=== PATIENT | male | born 1935 | race Caucasian/White ===

== ENCOUNTER → 2016-07-13 | Outpatient (CLI) | payer OTHER ==
[~2016-07-13] MED LIST: AEROECLIPSE1 EACH INH; ALBUTEROL2.5 MG/0.5 INH; ALLEGRA180 MG PO; ANTACID500 MG PO; ASPIRIN81 MG PO; ATORVASTATIN CA20 MG PO; AZATHIOPRINE50 MG PO; BYSTOLIC 5 MG5 MG PO; CIMETIDINE 400400 MG PO; COUMADIN; COUMADIN 2 MG TA2 M1 PO; COUMADIN 4 MG TA4 M1 PO; COUMADIN 5 MG TA5 M1 PO; FISH OIL 1,0001 EAC9 PO; FISH OIL500 M1 PO; FOLIC ACID 1 MG1 MG GT; FOLIC ACID 1 MG1 MG PO; FOLIC ACID PO; FUROSEMIDE 40 M40 M1 PO; GLUCOPHAGE XR500 MG PO; GLUCOPHAGE500 MG PO; GLUCOTROL XL10 MG PO; GLUCOTROL10 MG PO; HYDROCODONE-AP1 EAC6 PO; IMURAN 50MG TAB50 M1 PO; IRON55 MG PO; JANTOVEN6 MG PO; KLOR-CON 10 ER10 MEQ PO; LASIX 20 MG TAB20 MG PO; LEVAQUIN 250 M250 MG PO; LEVAQUIN 500 M500 M2 PO; LEVOFLOXACIN750 MG PO; LORATIDINE 10 M10 M1 PO; METFORMIN 500500 MG PO; MONTELUKAST SOD10 MG PO; MUCINEX TA600 MG/TA2 PO; MUCINEX600 MG PO; NORCO 5-325 TA1 EACH PO; OMEPRAZOLE20 M2 PO; OMEPRAZOLE20 MG PO; OXYBUTYNIN CHLO10 MG PO; PACERONE 200 M200 M1 PO; POTASSIUM20 PO; PRAVACHOL 20 MG20 M1 PO; PREDNISONE 20 M20 M1 PO; PREDNISONE 5 MG5 M1 PO; PROAIR HFA8.5 GM; PROTONIX40 M2 PO; PROZAC 20 MG20 MG PO; QVAR8.7 G1 IH; ROBAXIN 750 MG750 M1 PO; SIMCOR 500-201 EACH PO; SYNTHROID50 MCG PO; UNICOMPLEX M TA1 TA1 PO; VESICARE 5 MG TA5 MG PO; ZANTAC 150MG T150 M1 PO; ZESTRIL10 MG PO; ZESTRIL5 MG PO; [UNRECOGNIZED DRUG - OTHER] PO
== END ==
LOC: CAT 05:21
DX: R91.8 Other nonspecific abnormal finding of lung field (principal); R16.1 Splenomegaly, not elsewhere classified

== ENCOUNTER → 2016-09-17 | Outpatient (CLI) | payer OTHER | LOC: MRI 06:49 | DX: R41.3 Other amnesia (principal); R26.9 Unspecified abnormalities of gait and mobility; G31.9 Degenerative disease of nervous system, unspecified; M47.816 Spondylosis without myelopathy or radiculopathy, lumbar region; M54.5 Low back pain ==

== ENCOUNTER 2016-10-09 03:29 | Inpatient (IN) | payer OTHER ==
[~2016-10-09] VITALS: Ht 162.6 cm; Wt 71.7 kg
--- NOTE | ~2016-10-09 | H ---
[facility] [place] [address] HISTORY AND PHYSICAL Name: BETY XIE Room #: 432-P ADM IN M.R.#: [id number] Admission: 10/09/16 Attend Phys: Ciro Monreal MD Discharge: Date of : 35 Report #: [id number] THIS REPORT FOR: //name// CC: Ciro Monreal DATE OF SERVICE: 10/09/2016 DATE OF ADMISSION: 10/09/2016. DATE OF SERVICE: 10/09/2016. CHIEF COMPLAINT: Weakness, fever and chills. HISTORY OF PRESENT ILLNESS: The patient is an 81-year-old male well known to me who presented with sensation of fevers, chills and weakness. He has an underlying immunosuppressive disorder and has had recurrent bouts of pneumonia. He is followed by Dr. See in pulmonary; Dr. Olmos, rheumatology; Dr. Marin, cardiology. He has past history of pneumonia, multiple times; diabetes type 2; rheumatoid arthritis; prior prostate cancer; coronary artery disease with [place] in 93; prior history of gastritis; and prior history of DVT and asthma. MEDICATIONS: Glucotrol 10 mg a day; potassium 20 mEq b.i.d.; AccuNeb q.i.d.; Prozac 20 mg a day; oxybutynin 10 mg daily; amiodarone 200 mg Tuesday, Tuesday, Tuesday; prednisone 7.5 mg a day; iron daily; QVAR b.i.d.; fish oil daily; Spiriva daily; Lasix 20 mg a day; Singulair 10 mg a day; metformin XR 500 mg b.i.d.; folic acid; Synthroid 50 mcg a day; atorvastatin 10 mg a day; omeprazole 20 mg a day; Coumadin 2 mg 2 tablets daily; azathioprine 50 mg a day; guaifenesin b.i.d. ALLERGIES: CONTRAST DYE, PENICILLIN. SOCIAL HISTORY: Nonsmoker, nondrinker, no recreational drugs. Lives with his . REVIEW OF SYSTEMS: CONSTITUTIONAL: He does have chills and fevers. HEENT: No headaches or visual changes. CHEST: No chest pains or tightness in the chest. No significant cough or sputum production. GASTROINTESTINAL: No nausea, vomiting or diarrhea. GENITOURINARY: He has the burning, frequency and sensation of urgency. EXTREMITIES: No new joint pains or swelling. SKIN: No new rashes or wounds. NEUROLOGIC: No new numbness or weakness. PHYSICAL EXAMINATION: [facility] [address] [place] [address] HISTORY AND PHYSICAL Name: BETY XIE Room #: [facility] IN [facility]#: [id number] Admission: 10/09/16 Attend Phys: Ciro Monreal MD Discharge: Date of : 35 Report #: [id number] VITAL SIGNS: Blood pressure 105/57, pulses 103, respiratory rate is 20. He is afebrile. GENERAL: The patient is awake and alert, sitting in a chair. He is very pleasant. He is in no acute distress. HEENT: His mucous membranes are moist. NECK: Supple, without adenopathy, thyromegaly or bruits. CHEST: Clear to auscultation. CARDIOVASCULAR: Regular, without murmur. ABDOMEN: Soft, nondistended. He is mildly tender in the suprapubic area. Bowel sounds are active. EXTREMITIES: No edema. Pulses are intact. LABORATORY DATA: Sodium 144, potassium 4.2, chloride 108, bicarbonate 28, BUN 18, creatinine 1.0, glucose 215, lactic acid is 2.3, AST 25, ALT 35, total protein 6.2, albumin 3.0. INR is 3.3. WBC is 4.0, hemoglobin 11.2, hematocrit 34.4, platelet count 83. UA shows specific gravity 1.020, 2+ blood with 11-20 red cells, 16-25 white cells and many bacteria. ASSESSMENT: 1. Urinary tract infection with sepsis. 2. Immunosuppressed state with rheumatoid arthritis. 3. Diabetes mellitus. 4. Asthma. 5. Atrial fibrillation. PLAN: The patient will be admitted, started on IV fluids, IV Levaquin. He is already feeling so much better after the administration of the first fluids and antibiotics. We will follow up on his culture for sensitivities. We will resume his home meds as listed above. We will encourage activity, and he will have a diabetic diet. By: [id number] Ciro Monreal MD /nt
[2016-10-09 03:42] VITALS: BP 105/57
[2016-10-09] MEDS ORDERED: [UNRECOGNIZED DRUG - OTHER] PO (03:55)
[2016-10-09] MEDS ORDERED: IRON325 PO (04:00)
[2016-10-09] MEDS ORDERED: QVAR8.7 G1 INH (04:01)
[2016-10-09 04:04] LABS: URINE BILIRUBIN NEGATIVE (Negative); URINE BLOOD 2+ (Negative); URINE COLOR YELLOW; URINE GLUCOSE-RANDOM* TRACE (Negative); URINE KETONES NEGATIVE (Negative); URINE LEUKOCYTES-REFLEX 1+ (Negative); URINE PROTEIN (DIPSTICK) TRACE (Negative); URINE UROBILINOGEN 0.2 E.U./dl (0.2-1.0)
[2016-10-09] MEDS ORDERED: ALPHA LIPOIC A600 M1 PO (04:04)
[2016-10-09] MEDS ORDERED: SPIRIVA INH (04:05)
[2016-10-09 04:28] LABS: CASTS None Seen /LPF (None Seen); CRYSTALS None Seen /LPF (None Seen); SQUAMOUS None Seen /LPF (0-3)
[2016-10-09 04:46] LABS: HEMATOCRIT 34.4 % (42.0-52.0); HEMOGLOBIN 11.2 gm/dL (14.0-18.0); MCH 26.5 pg (26.0-34.0); MCHC 32.5 g/dL (28.0-37.0); MCV 81.5 fL (80.0-100.0); PLATELET COUNT 83 thou/uL (150-400); RBC 4.22 mil/uL (4.50-6.00); RDW 18.9 % (10.5-14.5)
[2016-10-09 04:47] LABS: MANUAL DIFF YES
[2016-10-09 04:56] LABS: CALCIUM 8.6 mg/dL (8.5-10.1); POTASSIUM 4.2 mmol/L (3.5-5.1)
[2016-10-09 05:00] LABS: APTT 28.7 Seconds (24.5-32.8); INR 3.3; PROTIME 33.8 Seconds (9.3-11.4)
[2016-10-09 05:14] LABS: TOTAL BILIRUBIN 0.6 mg/dL (<0.1-1.0); TOTAL PROTEIN 6.2 g/dL (6.4-8.2)
[2016-10-09 06:57] VITALS: BP 105/60
[2016-10-09 07:35] VITALS: BP 80/50
[2016-10-09] MEDS ORDERED: LEVAQUIN 500 M500 M2 PO (07:51)
[2016-10-09 10:30] LABS: ABSOLUTE NEUTROPHILS 3.6 thou/uL (1.4-8.2); TOTAL CELL COUNT 100
[2016-10-09 10:31] LABS: ANISOCYTOSIS 2+; MICROCYTES 1+; OVALOCYTES FEW
[2016-10-09 16:48] VITALS: BP 98/46
[2016-10-09 21:00] VITALS: BP 106/72
[2016-10-10 04:30] VITALS: BP 143/65
[2016-10-10 05:51] LABS: HEMOGLOBIN 9.8 gm/dL (14.0-18.0)
[2016-10-10 05:54] LABS: HEMATOCRIT 29.9 % (42.0-52.0); MCH 26.8 pg (26.0-34.0); MCHC 32.8 g/dL (28.0-37.0); MCV 81.8 fL (80.0-100.0); RBC 3.66 mil/uL (4.50-6.00); RDW 18.3 % (10.5-14.5)
[2016-10-10 05:55] LABS: WBC 1.8 thou/uL (4.0-11.0)
[2016-10-10 06:03] LABS: CALCIUM 8.3 mg/dL (8.5-10.1); CREATININE 0.9 mg/dL (0.7-1.3); POTASSIUM 4.2 mmol/L (3.5-5.1)
[2016-10-10 08:00] VITALS: BP 132/59
[2016-10-10 10:31] VITALS: BP 132/59
== END 2016-10-10 12:34 | disposition home or self-care (01) | DRG 872 ==
LOC: ER 03:29 → 4E 05:24 → EROBS 05:24 → 4E 07:41
PROVIDERS: Emergency Medicine
DX: A41.9 Sepsis, unspecified organism (principal); N39.0 Urinary tract infection, site not specified; E11.9 Type 2 diabetes mellitus without complications; M06.9 Rheumatoid arthritis, unspecified; B02.9 Zoster without complications; J45.909 Unspecified asthma, uncomplicated; I25.10 Atherosclerotic heart disease of native coronary artery without angina pectoris; I48.91 Unspecified atrial fibrillation; Z90.49 Acquired absence of other specified parts of digestive tract; Z85.46 Personal history of malignant neoplasm of prostate; Z91.041 Radiographic dye allergy status; I25.2 Old myocardial infarction; Z98.49 Cataract extraction status, unspecified eye; Z86.718 Personal history of other venous thrombosis and embolism; Z88.0 Allergy status to penicillin; Z88.8 Allergy status to other drugs, medicaments and biological substances; Z79.899 Other long term (current) drug therapy
CPT/HCPCS: 10183

== ENCOUNTER 2016-11-30 09:21 | Inpatient (IN) | payer OTHER ==
[~2016-11-30] VITALS: Ht 162.6 cm; Wt 66.7 kg
--- NOTE | ~2016-11-30 | H ---
[facility] [place] [address] HISTORY AND PHYSICAL Name: BETY XIE Room #: 312-P [facility] IN M.R.#: [id number] Admission: 11/30/16 Attend Phys: Ciro Monreal MD Discharge: Date of : 35 Report #: [id number] THIS REPORT FOR: //name// CC: Ciro Monreal DATE OF SERVICE: 11/30/2016 CHIEF COMPLAINT: Weakness, nausea, abdominal pain, diarrhea and vomiting. HISTORY OF PRESENT ILLNESS: The patient is an 81-year-old male who was hospitalized just recently for a UTI with similar symptoms. He was admitted and treated with IV antibiotics and fluids until better. He went home, saw in followup one time and was doing well and then 2 days ago, started having similar symptoms of nausea, vomiting and diarrhea. He also had some right upper quadrant abdominal pain. PAST MEDICAL HISTORY: His past history is significant for chronic immunosuppressive disorder, degenerative arthritis, rheumatoid arthritis, prior pneumonia multiple times, diabetes mellitus type 2, prostate cancer, coronary artery disease with [place] in 1992, prior gastritis, prior DVT and asthma. MEDICATIONS: Glucotrol XL 10 mg a day; potassium 20 mEq b.i.d.; AccuNeb q.i.d.; fluoxetine 20 mg a day; oxybutynin 10 mg a day; amiodarone 200 mg Tuesday, Tuesday and Tuesday; prednisone 7.5 mg a day, iron daily b.i.d., Lasix 20 mg a day, Singulair 10 mg a day, metformin XR 500 mg b.i.d., Synthroid 50 mcg a day, Spiriva 1 cap daily, atorvastatin 10 mg a day, omeprazole 20 mg a day, Coumadin 2 mg 1-2 daily and azathioprine 50 mg a day. ALLERGIES: CONTRAST DYE and PENICILLIN. SOCIAL HISTORY: Nonsmoker, nondrinker. No recreational drugs. He lives independently with his . REVIEW OF SYSTEMS: CONSTITUTIONAL: Positive for the weakness and malaise. HEENT: No headaches or visual changes. CHEST: No chest pains or tightness in his chest. No significant new shortness of breath. No sputum production. GASTROINTESTINAL: As above with nausea, vomiting and diarrhea. No blood in his stools. GENITOURINARY: No burning or frequency. EXTREMITIES: Generalized weakness. PHYSICAL EXAMINATION: VITAL SIGNS: In my office are as follows: Blood pressure is 104/60, his pulse is 61 and his respiratory rate is 16. He is afebrile. O2 sats 97% on room air. [facility] [address] [place] [address] HISTORY AND PHYSICAL Name: BETY XIE Room #: [address] [place] [address] IN ..#: [id number] Admission: 11/30/16 Attend Phys: Ciro Monreal MD Discharge: Date of : 35 Report #: [id number] His weight is 142 pounds, which is significantly down from about 10 days ago. GENERAL: The patient appears frail. HEENT: Mucous membranes are dry. NECK: Supple, without adenopathy, thyromegaly or bruits. CHEST: Clear to auscultation bilaterally. CARDIOVASCULAR: Irregular rhythm, without murmur. ABDOMEN: Soft. Mildly tender in the right upper quadrant. No rebound or guarding. Bowel sounds are hypoactive. EXTREMITIES: Show no edema. ASSESSMENT: 1. Abdominal pain with diarrhea and vomiting. We will admit. Get a CT abdomen without contrast. Give IV fluids, give antibiotics. Check CBC, CMP and lipase. Zofran p.r.n. nausea. We will follow up on imaging prior to any other antibiotics at this time. Also, check a urinalysis and culture. 2. Diabetes mellitus. Hold his metformin in light of presumed acute kidney injury with his vomiting. 3. History of pneumonia. He is getting a chest x-ray on admission as well. 4. History of urinary tract infection. Check urine culture. By: [id number] Ciro Monreal MD /nt
[~2016-11-30 09:21] MED LIST changes: +ALPHA LIPOIC A600 M1 PO; +IRON325 PO; +QVAR8.7 G1 INH; +SPIRIVA INH; +[UNRECOGNIZED DRUG - OTHER] PO
[2016-11-30] MEDS ORDERED: MUCUS RELIEF600 M1 PO (11:37)
[2016-11-30] MEDS ORDERED: ARICEPT 5 MG TAB5 MG PO (11:39)
[2016-11-30 16:28] LABS: HEMATOCRIT 37.5 % (42.0-52.0); HEMOGLOBIN 12.3 gm/dL (14.0-18.0); MCH 27.2 pg (26.0-34.0); MCHC 32.8 g/dL (28.0-37.0); MCV 82.9 fL (80.0-100.0); RBC 4.52 mil/uL (4.50-6.00); RDW 18.3 % (10.5-14.5); WBC 3.8 thou/uL (4.0-11.0)
[2016-11-30 16:29] VITALS: BP 142/80
[2016-11-30 16:42] LABS: ALBUMIN 3.4 g/dL (3.4-5.0); CALCIUM 8.9 mg/dL (8.5-10.1); POTASSIUM 3.8 mmol/L (3.5-5.1); TOTAL BILIRUBIN 0.6 mg/dL (<0.1-1.0); TOTAL PROTEIN 6.6 g/dL (6.4-8.2)
[2016-11-30 20:00] VITALS: BP 111/68; BP 144/92
[2016-12-01 04:00] VITALS: BP 134/61
[2016-12-01 08:21] VITALS: BP 122/60
[2016-12-01 16:58] VITALS: BP 136/73
[2016-12-01 20:20] VITALS: BP 136/66
[2016-12-02 04:50] VITALS: BP 129/64
[2016-12-02 06:25] LABS: HEMATOCRIT 35.8 % (42.0-52.0); HEMOGLOBIN 11.7 gm/dL (14.0-18.0); MCH 27.5 pg (26.0-34.0); MCHC 32.6 g/dL (28.0-37.0); MCV 84.4 fL (80.0-100.0); RBC 4.25 mil/uL (4.50-6.00); RDW 18.2 % (10.5-14.5); WBC 3.6 thou/uL (4.0-11.0)
[2016-12-02 08:03] VITALS: BP 124/59
[2016-12-02 10:47] LABS: URINE BILIRUBIN NEGATIVE (Negative); URINE BLOOD NEGATIVE (Negative); URINE COLOR YELLOW; URINE GLUCOSE-RANDOM* NEGATIVE (Negative); URINE KETONES NEGATIVE (Negative); URINE LEUKOCYTES-REFLEX NEGATIVE (Negative); URINE PROTEIN (DIPSTICK) NEGATIVE (Negative); URINE UROBILINOGEN 0.2 E.U./dl (0.2-1.0)
[2016-12-02 16:24] VITALS: BP 146/65
[2016-12-02 20:30] VITALS: BP 155/69
[2016-12-03 04:40] VITALS: BP 140/65
[2016-12-03 08:55] VITALS: BP 113/68
[2016-12-03 10:38] LABS: HEMATOCRIT 36.5 % (42.0-52.0); HEMOGLOBIN 11.9 gm/dL (14.0-18.0); MCH 27.6 pg (26.0-34.0); MCHC 32.6 g/dL (28.0-37.0); MCV 84.8 fL (80.0-100.0); RBC 4.31 mil/uL (4.50-6.00); RDW 18.7 % (10.5-14.5); WBC 3.1 thou/uL (4.0-11.0)
[2016-12-03 10:48] LABS: INR 2.6; PROTIME 27.1 Seconds (9.3-11.4)
[2016-12-03 10:49] LABS: ALBUMIN 2.8 g/dL (3.4-5.0); CALCIUM 8.2 mg/dL (8.5-10.1); CREATININE 0.8 mg/dL (0.7-1.3); TOTAL BILIRUBIN 0.4 mg/dL (<0.1-1.0); TOTAL PROTEIN 5.6 g/dL (6.4-8.2)
[2016-12-03 15:47] VITALS: BP 113/68
[2016-12-03 16:24] VITALS: BP 113/68
[2016-12-03 18:28] VITALS: BP 113/68
== END 2016-12-03 18:29 | disposition home health service (06) | DRG 682 ==
LOC: 3N 09:21
PROVIDERS: Family Medicine; Nurse Practitioner Adult Health
DX: N17.9 Acute kidney failure, unspecified (principal); E43 Unspecified severe protein-calorie malnutrition; M19.90 Unspecified osteoarthritis, unspecified site; I25.10 Atherosclerotic heart disease of native coronary artery without angina pectoris; J45.909 Unspecified asthma, uncomplicated; E03.9 Hypothyroidism, unspecified; R41.3 Other amnesia; D64.9 Anemia, unspecified; E11.40 Type 2 diabetes mellitus with diabetic neuropathy, unspecified; R19.7 Diarrhea, unspecified; T50.905A Adverse effect of unspecified drugs, medicaments and biological substances, initial encounter; F03.90 Unspecified dementia, unspecified severity, without behavioral disturbance, psychotic disturbance, mood disturbance, and anxiety; M06.9 Rheumatoid arthritis, unspecified; Z85.46 Personal history of malignant neoplasm of prostate; I25.2 Old myocardial infarction; Z86.718 Personal history of other venous thrombosis and embolism; Z88.0 Allergy status to penicillin; Z91.041 Radiographic dye allergy status; Z87.01 Personal history of pneumonia (recurrent); Z87.440 Personal history of urinary (tract) infections; Z68.25 Body mass index [BMI] 25.0-25.9, adult; Z87.11 Personal history of peptic ulcer disease; Z79.899 Other long term (current) drug therapy; Z98.49 Cataract extraction status, unspecified eye; Z88.8 Allergy status to other drugs, medicaments and biological substances
CPT/HCPCS: 10795

== ENCOUNTER → 2017-03-15 | Outpatient (CLI) | payer OTHER ==
[~2017-03-15] MED LIST changes: +ARICEPT 5 MG TAB5 MG PO; +HYDROXYCHLOROQ200 M1 PO; +MACROBID 100 M100 M2 PO; +MUCUS RELIEF600 M1 PO; +NAMENDA 5 MG TAB5 M1 PO; +NEURONTIN 300300 M1 PO
== END ==
LOC: RAD 13:23
DX: R05 Cough (principal)

== ENCOUNTER → 2018-07-18 | Outpatient (CLI) | payer OTHER ==
[~2018-07-18] MED LIST changes: +BREO ELLIPTA 11 EACH INH; +DIGOXIN125 MCG PO; +ELIQUIS5 MG PO; +SYNTHROID100 MC1 PO; +VESICARE10 M1 PO
== END ==
LOC: ULTRA 08:32
DX: I65.23 Occlusion and stenosis of bilateral carotid arteries (principal)

== ENCOUNTER → 2018-08-07 | Outpatient (CLI) | payer OTHER | LOC: RAD 13:55 | DX: M19.011 Primary osteoarthritis, right shoulder (principal) ==

== ENCOUNTER → 2018-08-15 | Outpatient (CLI) | payer OTHER | LOC: MRI 09:32 | DX: M51.17 Intervertebral disc disorders with radiculopathy, lumbosacral region (principal); M48.07 Spinal stenosis, lumbosacral region; I25.10 Atherosclerotic heart disease of native coronary artery without angina pectoris; E11.9 Type 2 diabetes mellitus without complications; K21.9 Gastro-esophageal reflux disease without esophagitis; E78.00 Pure hypercholesterolemia, unspecified; I10 Essential (primary) hypertension; I48.0 Paroxysmal atrial fibrillation; Z88.0 Allergy status to penicillin; Z85.46 Personal history of malignant neoplasm of prostate; Z88.8 Allergy status to other drugs, medicaments and biological substances; Z91.041 Radiographic dye allergy status ==

== ENCOUNTER → 2018-09-05 | Outpatient (CLI) | payer OTHER ==
[~2018-09-05] VITALS: Ht 162.6 cm; Wt 78.9 kg
[~2018-09-05] MED LIST changes: +CRESTOR10 MG PO; +NAMENDA 10 MG T10 MG PO; +OXYBUTYNIN CHLO15 MG PO; +VITAMIN D5000 UNIT PO
[2018-09-05 12:57] VITALS: BP 136/71
--- NOTE | 2018-09-05 12:58 | NUR ---
Pain Clinic Assessment: 1. History of Osteoarthritis: Not Applicable History of Rheumatoid Arthritis: Not Applicable 2. Height: 5 ft. 4 in. 162.6 cm. Weight: 174.0 lb. oz. 78.926 kg. Patient's BMI: 29.9 3. Vital Signs: BP: 136/71 Pulse: 74 Resp: 16 Temp: 02 Sat: 95 ECG Mon: 4. Pain Intensity: 7 5. Fall Risk: Dizziness: N Needs help standing or walking: Y Fallen in the last 3 months: Y Fall risk comments: 6. Patient on Blood Thinner: DIANAQUIS 7. History of Hypertension: N 8. Opioid Therapy greater than 6 weeks: N Opiate Contract Signed: 9. Risk Assessment Tool Provided: LOW RISK 06/22 10. Functional Assessment Tool: 11. Recreational Drug Use: Never Drug Type: Tobacco Use: Never Smoker Tobacco Type: Amount or Packs/day: How Many Years: Alcohol Use: No Frequency: Quant:
--- NOTE | 2018-09-13 07:49 | HPC ---
[facility] [place] [address] PAIN MANAGEMENT CONSULTATION Name: BETY XIE [id number] Admission: 09/05/18 ������������������ Attend Phys: Chong Gonzalez DO Discharge: ������������������ Date of : 35 Report #: [id number] THIS REPORT FOR: //name// CC: Urban Monreal DATE OF SERVICE: 09/05/2018 REFERRING PHYSICIAN: Dr. Love. CHIEF COMPLAINT: Low back pain, bilateral lower extremity pain with paresthesias. HISTORY OF PRESENT ILLNESS: As you know, the patient is a very pleasant 82-year-old male, who returns today in followup visit reporting pain score of 7/10. He states the pain as shooting, achy, sharp, tender, numbness and tingling when describing pain. Pain is exacerbated with getting up from a chair, walking, climbing up and down stairs, standing, sitting, heat and cold compresses and rest tend to improve pain. He has been referred back to our service by his primary care physician, Dr. Ciro Monreal for evaluation for suspected lumbar radiculopathy. He has not undergone any new imaging studies. Most recent study we have is from 2014. He denies any injury or trauma that may have led to symptoms. He is experiencing multiple falls of late, which prompted a referral to our clinic. He has not sought evaluation through Neurology in regards to these falls as well. ALLERGIES: CONTRAST AGENT, PENICILLIN, AND REMICADE. CURRENT MEDICATIONS: Oxybutynin 15 mg once a day, cholecalciferol 5000 units per day, lovastatin 10 mg per day, Namenda 10 mg twice a day, furosemide 20 mg once a day, amiodarone 200 mg twice a day, Breo Ellipta 100/25 mcg per day, levothyroxine 100 mcg per day, Eliquis 5 mg twice a day, Plaquenil 200 mg twice a day, alpha lipoic acid 600 mg once a day, ferrous sulfate 365 mg once a day, albuterol 2 puffs q. 4 hours p.r.n., multivitamin 1 tab per day, prednisone 5 mg once a day, omeprazole 20 mg per day, potassium chloride 20 mEq twice a day, folic acid 2 mg once a day, glipizide 10 mg once a day, montelukast sodium 10 mg per day, Prozac 20 mg per day. SOCIAL HISTORY: The patient denies tobacco, alcohol, IV or illicit drug use. He is retired years ago, accompanied by his present in room today. IMAGING: There is no new imaging available. PQRS: The patient has known osteoarthritic changes of multiple weightbearing joints including the bilateral shoulders, bilateral hips, lumbar spine, [address] [address] PAIN MANAGEMENT CONSULTATION Name: BETY XIE [id number] Admission: 09/05/18 ������������������ Attend Phys: Chong Gonzalez DO Discharge: ������������������ Date of : 35 Report #: [id number] bilateral knees. He is not treated for rheumatoid arthritis. He is a fall risk and has had multiple falls over the past 3 months. He is on a blood thinner in the form of Eliquis. He is not treated for hypertension. He is not on chronic opioids. He has a low opioid addiction potential. Pain impact score of 43/70 indicating moderate to severe interference of daily activities secondary to pain. PHYSICAL EXAMINATION: VITAL SIGNS: Blood pressure 136/71, pulse 74, respiratory rate 16 and unlabored, the patient is 95% on room air. Height 5 feet 4 inches tall, weight 174 pounds, BMI calculated 29.9. GENERAL: Well-developed, well-nourished, well-hydrated, 82-year-old male appearing stated age, placing current pain score at 7/10. HEENT: Normocephalic, atraumatic. Pupils equal, round, reactive to light. Extraocular muscles are intact. Sclerae nonicteric without injection. NEUROLOGIC: Cranial nerves 2-12 grossly intact. Speech is fluent. He is deemed a good historian. LUNGS: Clear, no wheeze, rhonchi or rales. CARDIOVASCULAR: Regular. No appreciable gallop or rub. ABDOMEN: Soft, nontender, nondistended. EXTREMITIES: Show no clubbing, no cyanosis, no edema. MUSCULOSKELETAL: Lower extremity strength is weakened bilaterally. Muscle rating approximately 4.5/5. This is symmetrical. Seated straight leg raising negative. Supine straight leg raising positive right. Arielle's test negative. Modified Gaenslen's positive for axial low back pain. Ankle clonus negative. Babinski is negative. ASSESSMENT: 1. Symptomatic lumbar radiculopathy. 2. Spinal stenosis of lumbar spine. 3. 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 4. Post-laminectomy syndrome. 5. Lumbar degeneration. 6. Chronic intractable pain. PLAN: 1. The patient has been referred to our service by his primary care physician, Dr. Ciro Monreal for evaluation for suspected lumbar radiculopathy. He comes to us today to discuss options for treatment for bilateral lower extremity pain with paresthesias radiating from the low back. He has sustained multiple falls over the past couple of months attributed to weakness in the lower extremities. During physical exam, I did note muscle weakness, but this is symmetrical in origin. There is no focal muscle weakness nor neurologic deficit. The patient and I discussed the treatment options for lumbar radiculopathy. These would include the following treatment options. [address] [address] PAIN MANAGEMENT CONSULTATION Name: BETY XIE Room #: REG [facility].#: [id number] Admission: 09/05/18 ������������������ Attend Phys: Chong Gonzalez DO Discharge: ������������������ Date of : 35 Report #: [id number] We discussed physical therapy, stretching exercise, core strengthening as well as bilateral lower extremity strengthening. We discussed medication management adding neuropathic pain medications and consistent pain medication. We discussed epidural injection under fluoroscopic guidance for which the patient was referred to our clinic. We discussed surgical options. After reviewing risks and benefits of all proposed treatment options, the patient chose to move forward with a lumbar epidural injection under fluoroscopic guidance. The patient was advised that third [employer] pay[employer] restrictions require the authorization be obtained before the patient could undergo this procedure. We will begin the authorization process immediately. Once we have this authorization, we will have the patient return to undergo the first in a series of lumbar epidural injections. We will contact the patient by phone to reschedule once we have this authorization completed. 2. The patient will need to have clearance to come off his Eliquis. He will need to be off the Eliquis per ABDI guidelines for 3 days prior to any neuraxial blockade such as an epidural injection. He will need to gain clearance from the prescribing physician to come off this medication in preparation for lumbar epidural injection once he has this authorization. He will need to be off the medication for 3 days prior to the injection. 3. No medication changes made at today's visit. Recommend the patient to continue current medical therapy. 4. We will keep you apprised the patient's response to epidural injection. If no improvement in symptoms, I would recommend further evaluation with the MRI and possibly even an EMG to help determine the source of the patient's recent falls. We will defer to the primary team if that is necessary. 2. We wish to thank Dr. Monreal for the referral of patient to our clinic. We will keep you apprised of his response to treatment as we address suspected lumbar radiculopathy. Again, we wish to thank you for the opportunity to see the patient in consultation. ��������������������������������������������� <ELECTRONICALLY SIGNED> ���������������������������������������� By: Chong Gonzalez DO ��������������������������������������������� 09/13/18 0749 [id number] Chong Gonzalez DO /nt
== END ==
LOC: PAIN 07:15
DX: M51.16 Intervertebral disc disorders with radiculopathy, lumbar region (principal); M48.061 Spinal stenosis, lumbar region without neurogenic claudication; G89.4 Chronic pain syndrome; M96.1 Postlaminectomy syndrome, not elsewhere classified; Z79.899 Other long term (current) drug therapy

== ENCOUNTER 2018-09-19 09:43 | Inpatient (IN) | payer OTHER ==
[~2018-09-19] VITALS: Ht 162.6 cm; Wt 79.7 kg
[2018-09-19 10:30] VITALS: BP 151/65
[2018-09-19 10:49] LABS: HEMATOCRIT 38.5 % (42.0-52.0); HEMOGLOBIN 12.7 gm/dL (14.0-18.0); MCH 30.6 pg (26.0-34.0); MCV 92.7 fL (80.0-100.0); RBC 4.16 mil/uL (4.50-6.00); RDW 16.7 % (10.5-14.5); WBC 6.3 thou/uL (4.0-11.0)
[2018-09-19 11:01] LABS: ALBUMIN 3.3 g/dL (3.4-5.0); CALCIUM 8.9 mg/dL (8.5-10.1); POTASSIUM 4.2 mmol/L (3.5-5.1); TOTAL BILIRUBIN 0.5 mg/dL (<0.1-1.0); TOTAL PROTEIN 6.5 g/dL (6.4-8.2)
--- NOTE | 2018-09-19 12:59 | NUR ---
ASSESSMENT-PT LIVES AT HOME WITH HIS WHO IS 4 YRS YOUNGER THAN HE AND IN GOOD HEALTH. PT USES A WALKER TO GET AROUND AND DOES HIS OWN ADLS. PT HAS NOT BEEN DRIVING MUCH DUE TO LEG WEAKNESS. HAS BEEN DOING MOST OF THE DRIVING. 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 THEY HAVE A SON IN [facility] AND ANOTHER SON IN [place]. SHE HS A COUSIN IN [place] AND THEY HAVE FRIENDS HERE. PT IS ON SERVICE WITH [facility] AND HAS BEEN TO [facility] IN THE PAST. FOLLOWING TO ASSIST WITH DC PLANNING.
[2018-09-19] MEDS ORDERED: SYNTHROID125 MC1 PO (14:05)
[2018-09-19] MEDS ORDERED: ELIQUIS5 MG PO (14:06)
[2018-09-19] MEDS ORDERED: PACERONE 200 M200 M1 (14:07)
[2018-09-19] MEDS ORDERED: PROZAC20 MG PO (14:08)
[2018-09-19] MEDS ORDERED: FUROSEMIDE 20 M20 MG PO (14:09)
[2018-09-19] MEDS ORDERED: PREDNISONE 5 MG5 M1 PO (14:10)
[2018-09-19] MEDS ORDERED: POTASSIUM20 PO (14:10)
[2018-09-19] MEDS ORDERED: HYDROXYCHLOROQ200 M1 PO (14:11)
[2018-09-19] MEDS ORDERED: NAMENDA 10 MG T10 MG PO (14:12)
[2018-09-19] MEDS ORDERED: CRESTOR10 MG PO (14:13)
[2018-09-19] MEDS ORDERED: KEFLEX500 M1 PO (14:19)
[2018-09-19] MEDS ORDERED: NORCO 7.5-3251 EACH PO (14:19)
[2018-09-19] MEDS ORDERED: BACTRIM DS TAB1 EACH PO (14:20)
--- NOTE | 2018-09-19 15:37 | NUR ---
WOUND CONSULT: PT. WAS SEEN TODAY BY DR. STEEL AND MYSELF. PT. HAS AN INFECTION TO HIS RIGHT 5TH DIGIT THAT HAS FAILED OUTPATIENT TREATMENT. WILL UTLIZE LOCAL WOUND CARE, IV ANTIBOTICS ALONG WITH BEDSIDE DEBRIDEMENT. RECOMMENDATIONS: WOUND CARE TO RIGHT TOES: GENTLY CLEANSE WITH WOUND CLEANSER OR NORMAL SALINE, PAINT WITH BETADINE, LEAVE OPEN TO AIR, COMPLETE CARES DAILY. PT. AND STAFF NURSE WERE INSTRUCTED ON PLAN OF CARE.
[2018-09-19 17:11] VITALS: BP 134/56
--- NOTE | 2018-09-19 17:20 | NUR ---
PT ARRIVED TO FLOOR AROUND 1045 FOR RIGHT TOE INFECTION FROM DR. FLETCHER'S OFFICE. SETTLED PT INTO ROOM AND ORIENTED TO CALL LIGHT AND BATHROOM. PT DENIES PAIN AT THIS TIME. EDEMA TO BILATERAL LOWER EXTREMITIES. OPEN SORE TO RIGHT GREAT TOE OPEN TO AIR AT THIS TIME. PT IS ALERT/ORIENTED X4. WILL AWAIT ORDERS FROM PHYSICIAN.
[2018-09-19 22:00] VITALS: BP 116/53
[2018-09-20 04:30] VITALS: BP 84/47
--- NOTE | 2018-09-20 05:51 | NUR ---
PT IS ALERT AND ORIENTED. STANDS UP TO USE BSC. PT AMBULATES IN ROOM USING WALKER. DENIES PAIN.KEPT WAKING UP SAYING HE IS CHOCKING-OBSERVED COUGHING UP SOME THICK SPUTUM. PT MORE COMFORTABLE SITTING IN THE CHAIR.REMAINS ON ROOM AIR-DENIES NAY CHEST PAIN, SOA OR CHEST TIGHTNESS.
[2018-09-20 08:39] VITALS: BP 107/45
--- NOTE | 2018-09-20 08:45 | NUR ---
Nutrition: Pt admitted for right great toe wound, seen for wound. Hx of DMII. Cellulitis present on right foot and osteomyelitis at wound site. EMR mentioned amputation. Appetite not good with 20% intake x1 day since foot pain started. Wt stable since Feb 2018. UBW 168 lbs, current 175 lbs. Promoted protein and kcal intake. Pt agreed to try Isak and Glucerna. Low risk with interventions in place.
[2018-09-20 15:45] VITALS: BP 96/61
--- NOTE | 2018-09-20 15:50 | NUR ---
WOUND FOLLOW UP: PT. WAS SEEN TODAY BY DR. STEEL AND MYSELF. DR. STEEL COMPLETED A BEDSIDE DEBRIDEMENT OF THE RIGHT 5TH DIGIT TODAY. PRE MEASUREMENTS WERE: 1.6 X 1.8 X 0.0 AND POST WERE: 1.8 X 2.0 X 1.5. PT. HAD A HEMOTOMA UNDER THE ESCHAR. RECOMMENDATIONS: CONTINUE WITH CURRENT PLAN OF CARE. PT. AND STAFF NURSE WERE INSTRUCTED ON PLAN OF CARE.
--- NOTE | 2018-09-20 17:07 | NUR ---
ASSUMED CARE OF PT AT 0700. ASSESSMENT COMPLETED. C/O RIGHT 5TH TOE PAIN, PAIN MEDS GIVEN ORDERED. RIGHT PEDAL EDEMA +1. RED/DISCOLORED SKIN BLE. BEDSIDE I&D DONE TODAY BY WOUND CARE. PICTURE TAKEN POST PROCEDURE AND WOUND CARE GIVEN ORDERED. DRESSING C/D/I RIGHT FOOT. PT IS CURRENTLY SLEEPING IN BED, DENIES PAIN. ROOM AIR. NO OTHER SKIN CONCERNS. A&O,X4. WILL CONTINUE TO MONITOR.
[2018-09-20 19:35] VITALS: BP 85/62
[2018-09-20 20:52] VITALS: BP 115/73
[2018-09-21 04:00] VITALS: BP 98/71
--- NOTE | 2018-09-21 07:55 | NUR ---
RLE elevated on pillow. Pt slept in chair most of the night. DRSG to RLE c/d/i. Morphine given x1 for breakthrough pain with great relief. Denies nausea. BP on the low side. Enc to drink. Voids per urinal. Denies chestpain or chest tightness.On room air and in no distress.Has a congested cough.Afebrile.
[2018-09-21 08:10] VITALS: BP 102/61
--- NOTE | 2018-09-21 08:30 | NUR ---
PT IS A&0X4, AMB W/WALKER AND SBA, HAS COUGH, RA, DRESSING CHANGE FOR RLE TO BE DONE LATER IN SHIFT. C/O PAIN 7-10 IN RLE, TOO EARLIER FOR MS YET ENCOURAGED ORAL IT WORKS LONGER, ALSO USING URINAL. ENCOURAGED HIM TO USE CALL LIGHT FOR ANY NEEDS
--- NOTE | 2018-09-21 13:29 | O ---
[facility] [place] [address] OPERATIVE REPORT Name: BETY XIE Room #: 428-P [facility] IN M.R.#: [id number] Admission: 09/19/18 ������������������ Attend Phys: Ciro Monreal MD Discharge: ������������������ Date of : 35 Report #: [id number] THIS REPORT FOR: //name// CC: Ciro Monreal DATE OF SERVICE: 09/20/2018 PREPROCEDURE DIAGNOSIS: Abscess, right fifth toe. POSTPROCEDURE DIAGNOSIS: Infected hematoma, right fifth toe. PROCEDURE PERFORMED: Excisional debridement and drainage of infected hematoma, right fifth toe. DESCRIPTION OF PROCEDURE: The patient is an 83-year-old male patient who dropped a heavy object on his foot, has developed cellulitis and abscess with necrosis of the skin over the fifth toe of his right foot. It was felt that the area was fluctuant and so incision and drainage was recommended. He did agree verbally at the bedside. A time-out was taken. We identified correct patient, correct site, correct procedure, and correct location. The area was then prepped and draped in usual sterile fashion and anesthetized with 1% plain lidocaine. Following adequate anesthesia, #15 bladed scalpel and tissue forceps were utilized to excise the skin and subcutaneous tissue down to the level of bone. A large amount of retained hematoma was released. The patient tolerated the procedure well. Estimated blood loss 3 mL. Pain was 2 on a scale of 1-10 during the procedure and 0 on a scale of 1-10 postprocedure. The preprocedure measurements include 1.6 x 1.8 by eschar. Post debridement measurements following excisional debridement and drainage would be 1.8 cm x 2.0 cm x 1.5 cm. The patient tolerated the procedure well. A culture and sensitivity was obtained from the hematoma. Hemostasis was intact with no intervention. ��������������������������������������������� <ELECTRONICALLY SIGNED> ���������������������������������������� By: Porter Riggins MD ��������������������������������������������� 09/21/18 1329 [id number] Porter Riggins MD /nt
--- NOTE | 2018-09-21 14:13 | NUR ---
WOUND FOLLOW UP: PT. WAS SEEN TODAY BY DR. STEEL AND MYSELF. PT. WOUND IS CLINICALLY BETTER TODAY AND PT. IS IN GOOD SPIRITS. RECOMMENDATIONS: CONTINUE WITH CURRENT PLAN OF CARE. PT. AND STAFF NURSE WERE INSTRUCTED ON PLAN OF CARE.
[2018-09-21 16:20] VITALS: BP 113/69
[2018-09-21 21:11] VITALS: BP 93/62
--- NOTE | 2018-09-22 02:23 | NUR ---
ALERT AND ORIENTED. PT DENIES PAIN. RLE WITH DRSG C/D/I. TIPS OF TOES WITH SENSATION, CIRCULATION AND MOVEMENT.DISCOLORATION TO BLE. PT BP LOW-A 250CC BOLUS GIVEN AND AMIODARONE DOSE HELD FOR TONIGHT. PT DENIES ANY SOA OR CHEST PAIN. HE IS SLEEPING IN THE CHAIR. HE USES URINAL AND SEEMS TO BE VOIDING OKAY.HAD A BM TONIGHT. BLE ELEVATED.
[2018-09-22 05:00] VITALS: BP 101/65
[2018-09-22 07:40] VITALS: BP 102/70
--- NOTE | 2018-09-22 13:51 | NUR ---
NOTIFIED [facility]UL[facility] THAT PT. POSS. DC LATE TODAY OR IN AM. IF PT DISCHARGES AFTER SW LEAVES TODAY OR THIS WEEKEND FAX DC ORDERS/[facility] TO [phone] AND CALL [phone] TO CONFIRN ORDERS RECEIVED.
--- NOTE | 2018-09-22 14:54 | NUR ---
WOUND FOLLOW UP: PT. WAS SEEN TODAY BY DR. STEEL AND MYSELF. PT. WOUND IS CLINICALLY BETTER WITH EACH VISIT. PT. IS STILL HAVING PAIN BUT, NO JUST WITH DRESSING CHANGES. RECOMMENDATIONS: CONTINUE WITH CURRENT PLAN OF CARE. PT. AND STAFF NURSE WERE INSTRUCTED ON PLAN OF CARE.
[2018-09-22 15:19] VITALS: BP 102/70
[2018-09-22 15:20] VITALS: BP 102/70
[2018-09-22 16:51] VITALS: BP 99/66
--- NOTE | 2018-09-22 17:52 | NUR ---
ASSUMED CARE AT 0700, SHIFT ASSESMENT DONE, BP LOW, TACHYCARDIC THIS AM, ASYMTOMATIC OTHERWISE. DID NOT REPORT ANY PAIN EARLIER IN THE DAY. REPORTED PAIN AFTER DRESSING CHANGE, PRN PAIN MED GIVEN. DR ARRIAGA NOTIFIED ABOUT LOW BP AND HIGH HR, ORDER RECEIVED TO INFUSE IV FLUIDS. ORDER RECEIVED TO TRANSFER PATIENT TO SENIOR SUITES, REPORT GIVEN TO NURSE. WILL BE GOING TO ROOM 225. WILL CONTINUE TO ASSESS AND ASSIST WITH ADLs NEEDED.
[2018-09-22 18:58] VITALS: BP 110/77
--- NOTE | 2018-09-22 19:22 | NUR ---
PATIENT TRANSFERRED FROM 428 TO SICU 225, PATIENT MADE COMFORTABLE IN BED, ORIENTED TO ROOM AND STAFF, ELEVATED RLE WITH PILLOW, PERSONAL BELONGINGS AND CALL LIGHT IN REACH, WILL CONTINUE TO MONITOR
--- NOTE | 2018-09-23 05:45 | NUR ---
ASSUMED CARE OF PATIENT AT 1900. BP LOW. NS BOLUS AND CONTINUOUS INFUSION ORDERED. LEFT WRIST IV INFILTRATED. UNABLE TO OBTAIN ACCESS. HOUSE SUP PAGED AND WAS ABLE TO PUT 22 GAUGE IN RIGHT FA. IVF INFUSING WITHOUT COMPLICATION. PT C/O RIGHT FOOT PAIN, WAS GIVEN PRN NORCO AND THEN MORPHINE WITH DESIRED EFFECT ACHIEVED. PT CURRENTLY SLEEPING SOUNDLY IN BED IN NO ACUTE DISTRESS. CALL LIGHT WITHIN REACH. BED LOCKED AND IN LOWEST POSITION. TM.
--- NOTE | 2018-09-23 06:45 | NUR ---
THIS NURSE AGREES WITH ASSESSMENT AND NOTES OF PASTRY ASSISTANT FOR THIS PATIENT.
[2018-09-23 07:55] VITALS: BP 119/67
[2018-09-23 08:54] LABS: HEMATOCRIT 33.8 % (42.0-52.0); HEMOGLOBIN 11.1 gm/dL (14.0-18.0); MCH 31.1 pg (26.0-34.0); MCHC 32.9 g/dL (28.0-37.0); MCV 94.8 fL (80.0-100.0); RBC 3.56 mil/uL (4.50-6.00); RDW 17.2 % (10.5-14.5); WBC 3.1 thou/uL (4.0-11.0)
[2018-09-23 09:01] LABS: CALCIUM 8.5 mg/dL (8.5-10.1); POTASSIUM 4.2 mmol/L (3.5-5.1)
--- NOTE | 2018-09-23 13:03 | NUR ---
ASSUMED CARE OF PATIENT THIS MORNING. PATIENT IS A&OX4. HE GETS UP WITH SBA AND WALKER. HE VOIDS PER URINAL. I&D ON 09/19 OF R. FIFTH TOE. HE IS ON LOW DOSE SLIDING SCALE. HE HAS NOT REQUIRED ANY INSULIN TODAY. PATIENT HAS NOT COMPLAINED OF ANY PAIN. VS HAVE BEEN WITHIN THE NORMAL RANGE. PATIENT IS CURRENTLY SITTING IN CHAIR WITH CALL LIGHT AND BELONINGS WITHIN REACH. HE CALLS OUT APPROPRIATELY FOR ANY NEEDED ASSISTANCE.
[2018-09-23 15:13] VITALS: BP 151/95
[2018-09-23 19:27] VITALS: BP 147/85
--- NOTE | 2018-09-24 04:10 | NUR ---
ASSUMED CARE OF PATIENT AT 1900. VSS. ASSESSMENT COMPLETED AT 2009 AND IS DOCUMENTED. PRN NORCO AND MORPHINE GIVEN FOR C/O RIGHT FOOT PAIN WITH DESIRED EFFECT ACHIEVED. PT UP WITH SBA AND WALKER TO TOILET AND TO USE URINAL. HS BLOOD SUGAR: 124; NO COVERAGE INSULIN NEEDED. RIGHT FA IV PATENT AND SALINE LOCKED. PT CURRENTLY SLEEPING SOUNDLY IN BED IN NO ACUTE DISTRESS. CALL LIGHT WITHIN REACH. BED LOCKED AND IN LOWEST POSITION. WCTM.
[2018-09-24 08:26] VITALS: BP 149/72
--- NOTE | 2018-09-24 11:44 | NUR ---
ASSUMED CARE OF PATIENT THIS MORNING. PATIENT IS A&OX4. HE IS UP W/SBA AND WALKER. PATIENT HAS NOT COMPLAINED OF MUCH PAIN THIS MORNING, AND DID NOT WANT ANYTHING FOR PAIN. HE WILL HAVE HIS DRESSING CHANGED TODAY ON HIS RIGHT FOOT. MORNING MEDS WERE GIVEN AND TOLERATED. NO LABS HAD BEEN DRAWN WITHIN THE LAST 24 HOURS. VS WERE WITHIN NORMAL RANGE. NO INSULIN WAS GIVEN THIS MORNING BLOOD SUGAR WAS 61 AND WHEN RECHECKED IT WAS 71. R. FOREARM IV SITE IS SALINE LOCKED. PATIENT IS CURRENTLY SITTING IN CHAIR WITH CALL LIGHT WITHIN REACH.
--- NOTE | 2018-09-24 18:05 | NUR ---
I AGREE WITH NURSING ASSESSMENT DONE BY ALEC/KEESHA.
[2018-09-24 20:09] VITALS: BP 152/68
--- NOTE | 2018-09-25 03:51 | NUR ---
Assumed Pt. care at 1900. Remains A&Ox4; Swallows meds whole w/ difficulty. Remains cont. B&B. Ambulates independently w/ steady gait. Blood sugars WNL. Remains on IVABT/wound infection; no adverse reactions noted. RFA SL intact; infused ABT/flushed w/o difficulty. DRSG C/D/I to RLE; no drainage noted to site. Bandaide noted to L hand, old IV site. Breathing txs, as ordered w/o difficulty. Pt. has no c/o pain or discomfort. No s/s of acute distress noted. Pt. up to recliner chair w/ call light/desired belongings within reach. Po fluids encouraged. Will continue to monitor.
--- NOTE | 2018-09-25 07:26 | NUR ---
PATIENTS ASSESSMENTS AND PATIENT NOTES ARE AGREED.
[2018-09-25 13:07] VITALS: BP 102/70
[2018-09-25 14:00] VITALS: BP 116/78
--- NOTE | 2018-09-25 14:10 | NUR ---
CHAIR ALARM WAS FOUND TO BE GOING OFF IN THIS PT ROOM. UPON ENTRANCE OF ROOM, PT WAS ON HIS BACK ON THE FLOOR. PT WAS AWAKE, ALERT/ORIENTED, DENIES PAIN. 3 STAFF MEMBERS ASSISTED PT UP AND BACK INTO BED. VSS.
--- NOTE | 2018-09-25 14:35 | NUR ---
WOUND FOLLOW UP: PT. WAS SEEN TODAY BY WOUND CARE TEAM. PT. WOUND IS CLINICALLY BETTER AND PT. IS IN LESS PAIN AT THIS TIME. RECOMMENDATIONS: CONTINUE WITH CURRENT PLAN OF CARE. PT. AND STAFF NURSE WERE INSTRUCTED ON PLAN OF CARE.
--- NOTE | 2018-09-25 14:45 | NUR ---
PT ASSESSED AT START OF SHIFT. UP TO THE CHAIR MOST OF SHIFT. AMBULATED W/ WALKER IN HALLS W/ THERAPY USING WALKING SHOE AND DID WELL. EATING AND DRINKING WELL. NO C/O PAIN. DR. FLETCHER IN EARLY TO SEE PT. WOUND CARE IN THIS AFTERNOON. PT GOT UP BY HIMSELF DESPITE THE CHAIR ALARM AND INSTRUCTIONS TO CALL FIRST. LOST FOOTING AND SLID TO FLOOR. POST FALL PROCEDURE DONE. PT DC'D HOME W/ PER W/C AT THIS TIME W/ ALL BELONGINGS. HOME HEALTH TO FOLLOW.
[2018-09-25 15:00] VITALS: BP 124/78
--- NOTE | 2018-09-25 15:17 | NUR ---
DISCHARGE NOTE: SW reviewed chart and spoke with nursing. [facility] from and is medically stable for discharge home today with services. Pt current with [facility] . facility planner faxed discharge orders/summary to [facility] . Contact info for [facility] placed in pt's discharge summary. Pt's family to provide transportation home. No additional SW needs identified at this time, but is available to assist should needs arise.
--- NOTE | 2018-09-26 09:53 | HC ---
[facility] [place] [address] CONSULTATION Name: BETY XIE Room #: 225-P [facility] IN M.R.#: [id number] Admission: 09/19/18 ������������������ Attend Phys: Ciro Monreal MD Discharge: 09/25/18 ������������������ Date of : 35 Report #: [id number] THIS REPORT FOR: //name// CC: Ciro Monreal DATE OF SERVICE: 09/19/2018 CHIEF COMPLAINT: Ulceration to the right fifth toe. HISTORY OF PRESENT ILLNESS: This is an 83-year-old male patient who apparently had injured his right fifth toe twice, one time dropping a heavy object on it. He has had increasing ulceration and developed cellulitis of the fifth toe and foot as well as small abrasion to his elbow and right second toe. He has a history of diabetes. He has been not responding to outpatient therapy and has been admitted for more aggressive evaluation and treatment with antibiotic therapy. I have been asked to see him with regard to wound care. PAST MEDICAL HISTORY: Positive for history of prostate cancer in 1986. Previous left elbow infection, history of diabetes mellitus, previous appendectomy, cholecystectomy, tonsillectomy, history of rheumatoid arthritis, asthma, prior myocardial infarction and prior back surgery, details unknown. SOCIAL HISTORY: The patient is a former smoker, having smoked cigarettes, less than 1 pack per day. No history of alcohol use. FAMILY HISTORY: Noncontributory. CURRENT MEDICATIONS: Include Glucotrol, ProAir, Synthroid, Eliquis, Pacerone, Prozac, furosemide, K-Dur, prednisone, Plaquenil, Namenda, Crestor, [place], Keflex, Bactrim, K-Dur, prednisone, iron, Unicomplex, Lasix, Namenda, oxybutynin. ALLERGIES: IODINATED CONTRAST DYE, DULOXETINE, REMICADE, PENICILLIN. REVIEW OF SYSTEMS: CONSTITUTIONAL: The patient denies fever, chills or weight loss. NEUROLOGICAL: The patient denies focal weakness, numbness or tingling. EYES: The patient denies visual changes, redness or drainage. ENT: The patient denies earache, nasal drainage or sore throat. CARDIOVASCULAR: The patient denies chest pain or palpitations or diaphoresis. PULMONARY: The patient denies cough or shortness of breath. GASTROINTESTINAL: The patient denies nausea, vomiting, diarrhea, or abdominal pain. ORTHOPEDIC: The patient does have pain, swelling and redness to his right foot. Other systems in a 14-point review of systems are negative. [address] [address] CONSULTATION Name: BETY XIE Room #: 225-[facility] IN [facility].#: [id number] Admission: 09/19/18 ������������������ Attend Phys: Ciro Monreal MD Discharge: 09/25/18 ������������������ Date of : 35 Report #: [id number] PHYSICAL EXAMINATION: VITAL SIGNS: At this time include temperature of 98.6, pulse 90, respiratory rate 18, blood pressure 116/53. GENERAL: This is a chronically ill-appearing male patient who appears to be in minimal distress. HEENT: Normocephalic. Nose and throat are clear. NECK: Supple. LUNGS: Clear. HEART: Regular rhythm. ABDOMEN: Soft. Bowel sounds are present. EXTREMITIES: The lower extremities demonstrate palpable distal pulses. He has significant erythema on the dorsal aspect of his right foot. There is a small abrasion to the dorsal aspect of the right second toe. There is a large area of eschar on the dorsal aspect of the right fifth toe. It is tender and it almost feels fluctuant. He has a small abrasion to the right elbow. NEUROLOGIC: The patient is alert and oriented and appropriate. LABORATORY DATA: Includes sodium 141, potassium 4.2, chloride 103, CO2 of 31, BUN 17, creatinine 1.0, glucose of 107. Albumin is 3.3. CRP is elevated at 44.1, INR 1.8. White blood cell count 6.3 with a hemoglobin of 12.7. Arterial Doppler of lower extremities demonstrate triphasic flow from the right common femoral artery down to the popliteal artery with biphasic flow in the distal runoff vessels. No focal velocity acceleration is seen to suggest hemodynamically significant focal stenosis. MRI of the right foot demonstrates abnormal morphology of the distal fifth proximal phalanx with circumferential signal abnormality around the cortex, nonspecific, but is likely posttraumatic in etiology. No definite cortical destruction or joint effusion is noted. CLINICAL IMPRESSION: 1. Traumatic wound to the right fifth toe with resulting secondary cellulitis and possible abscess. 2. Distal proximal phalanx, right fifth toe fracture. 3. Diabetes mellitus with hyperglycemia. RECOMMENDATIONS: At this point in time, I agree with aggressive antibiotic therapy. We will likely need to perform an incision and drainage and debridement of the necrotic tissue. We will obtain deeper cultures. Plan for this on the , recommend Betadine to the eschar for now. The second toe can be left with the eschar intact; hopefully, it will slough in time. [facility] [address] [place] [address] CONSULTATION Name: BETY XIE Room #: 225-P [facility] IN [facility].#: [id number] Admission: 09/19/18 ������������������ Attend Phys: Ciro Monreal MD Discharge: 09/25/18 ������������������ Date of : 35 Report #: [id number] I appreciate being asked to see the patient in consultation. We will follow here closely. ��������������������������������������������� <ELECTRONICALLY SIGNED> ���������������������������������������� By: Porter Riggins MD ��������������������������������������������� 09/26/18 0953 [id number] Porter Riggins MD /nt
== END 2018-09-25 16:00 | disposition home health service (06) | DRG 629 ==
LOC: 4E 09:43 → ENTRNSPT 09-22 18:12 → SICU 09-22 18:46 → ENTRNSPT 09-25 16:12
PROVIDERS: ADMIT Family Medicine
PROC: 0QBQ0ZZ Excision of Right Toe Phalanx, Open Approach (ICD-10-PCS; principal; 2018-09-20)
DX: E11.621 Type 2 diabetes mellitus with foot ulcer (principal); L03.115 Cellulitis of right lower limb; E44.1 Mild protein-calorie malnutrition; S92.531B Displaced fracture of distal phalanx of right lesser toe(s), initial encounter for open fracture; M06.9 Rheumatoid arthritis, unspecified; J45.909 Unspecified asthma, uncomplicated; E11.65 Type 2 diabetes mellitus with hyperglycemia; E11.51 Type 2 diabetes mellitus with diabetic peripheral angiopathy without gangrene; L97.519 Non-pressure chronic ulcer of other part of right foot with unspecified severity; B95.61 Methicillin susceptible Staphylococcus aureus infection as the cause of diseases classified elsewhere; X58.XXXA Exposure to other specified factors, initial encounter; F03.90 Unspecified dementia, unspecified severity, without behavioral disturbance, psychotic disturbance, mood disturbance, and anxiety; Z68.30 Body mass index [BMI] 30.0-30.9, adult; Y93.89 Activity, other specified; I25.2 Old myocardial infarction; Y92.89 Other specified places as the place of occurrence of the external cause; Y99.8 Other external cause status; Z85.46 Personal history of malignant neoplasm of prostate; Z90.49 Acquired absence of other specified parts of digestive tract; Z87.891 Personal history of nicotine dependence; Z79.899 Other long term (current) drug therapy; Z88.0 Allergy status to penicillin; Z88.8 Allergy status to other drugs, medicaments and biological substances; Z91.041 Radiographic dye allergy status
CPT/HCPCS: 10783; 15002

== ENCOUNTER → 2018-10-04 | Outpatient (CLI) | payer OTHER ==
[~2018-10-04] MED LIST changes: +BACTRIM DS TAB1 EACH PO; +BREO ELLIPTA 11 EACH IH; +FUROSEMIDE 20 M20 MG PO; +KEFLEX500 M1 PO; +LEVAQUIN 500 M500 M3 PO; +METOPROLOL SUCC50 MG PO; +NORCO 7.5-3251 EACH PO; +PACERONE 200 M200 M1; +PREDNISONE 20 M20 MG PO; +PROZAC20 MG PO; +SYNTHROID125 MC1 PO
== END ==
LOC: HYPER 09-27 14:09
DX: E11.621 Type 2 diabetes mellitus with foot ulcer (principal); L97.516 Non-pressure chronic ulcer of other part of right foot with bone involvement without evidence of necrosis; L03.031 Cellulitis of right toe; R21 Rash and other nonspecific skin eruption; I25.2 Old myocardial infarction; J45.909 Unspecified asthma, uncomplicated; M06.9 Rheumatoid arthritis, unspecified; F41.9 Anxiety disorder, unspecified; F32.9 Major depressive disorder, single episode, unspecified; Z79.84 Long term (current) use of oral hypoglycemic drugs; Z87.891 Personal history of nicotine dependence; Z90.49 Acquired absence of other specified parts of digestive tract; Z85.46 Personal history of malignant neoplasm of prostate

== ENCOUNTER 2018-10-05 08:56 | Inpatient (IN) | payer OTHER ==
[~2018-10-05] VITALS: Ht 162.6 cm; Wt 77.1 kg
[~2018-10-05 08:56] MED LIST changes: -BREO ELLIPTA 11 EACH IH; -LEVAQUIN 500 M500 M3 PO; -METOPROLOL SUCC50 MG PO; -PREDNISONE 20 M20 MG PO
[2018-10-05 09:26] VITALS: BP 131/81
[2018-10-05] MEDS ORDERED: BREO ELLIPTA 11 EACH IH (09:44)
[2018-10-05] MEDS ORDERED: VITAMIN D5000 UNIT PO (09:45)
[2018-10-05] MEDS ORDERED: MUCINEX600 MG PO (09:47)
[2018-10-05] MEDS ORDERED: LEVAQUIN 500 M500 M3 PO (09:48)
[2018-10-05] MEDS ORDERED: PREDNISONE 20 M20 MG PO (09:48)
[2018-10-05 10:24] LABS: HEMATOCRIT 41.6 % (42.0-52.0); HEMOGLOBIN 13.4 gm/dL (14.0-18.0); MCHC 32.2 g/dL (28.0-37.0); RBC 4.47 mil/uL (4.50-6.00); RDW 17.3 % (10.5-14.5); WBC 6.6 thou/uL (4.0-11.0)
[2018-10-05 10:40] LABS: ALBUMIN 3.4 g/dL (3.4-5.0); CALCIUM 9.4 mg/dL (8.5-10.1); CREATININE 1.4 mg/dL (0.7-1.3); POTASSIUM 5.3 mmol/L (3.5-5.1); TOTAL BILIRUBIN 0.4 mg/dL (<0.1-1.0); TOTAL PROTEIN 6.8 g/dL (6.4-8.2)
[2018-10-05 11:48] VITALS: BP 112/67
[2018-10-05 16:53] VITALS: BP 102/64
--- NOTE | 2018-10-05 17:01 | NUR ---
Assumed care of Pt on arrival to unit at approx 0930. directly admitted from dr gonzalez office w/ pneumonia. chief complaint SOA w/ activity and generalized weakness. up w/ 1 assist and walker. IV accessed in L AC. home meds reconciled. sinus tach on telemetry - HR 110-120's - physician aware. will cont to monitor.
--- NOTE | 2018-10-05 17:46 | NUR ---
WOUND CONSULT: PT. WAS SEEN TODAY BY DR. STEEL AND MYSELF. PT. IS WELL KNOWN TO THE WOUND CARE TEAM. PT. HAS A ULCER TO HIS RIGHT 5TH TOE FROM A ABCESS/HEMOTOMA FROM A TRAMATIC INJURY. RECOMMENDATIONS: GENTYMICIN, XEROFORM, KERLIX, TAPE, DAILY AND PRN. PT. AND STAFF NURSE WERE INSTRUCTED ON PLAN OF CARE.
[2018-10-05 19:45] VITALS: BP 101/65
[2018-10-06 00:25] VITALS: BP 92/61
[2018-10-06 04:30] VITALS: BP 112/70
--- NOTE | 2018-10-06 06:21 | NUR ---
PT MAKING PROGRESS TOWARDS GOALS. LUNGS CLEAR AND MILDY DIMINISHED THROUGHOUT. ON ROOM AIR THROUGHOUT THE NIGHT. HAS DENIED ANY SOA AT REST AND MILD SOA WHEN TRANSFERING FROM CHAIR TO BED. SEE CHARTING.
[2018-10-06 07:35] VITALS: BP 109/66
--- NOTE | 2018-10-06 15:24 | NUR ---
WOUND FOLLOW UP: PT. WAS SEEN TODAY BY DR. STEEL AND MYSELF. PT. WOUND IS CLINICALLY BETTER TODAY. PT. WAS EDUCATED ON THE IMPORTANCE OF ELEVATION OF BLE TO AID IN SWELLING. RECOMMENDATIONS: CONTINUE WITH CURRENT PLAN OF CARE. PT. AND STAFF NURSE WERE INSTRUCTED ON PLAN OF CARE.
--- NOTE | 2018-10-06 15:38 | NUR ---
ASSESSMENT: CM REVIEWED CHART AND MET WITH PATIENT AT THE BEDSIDE. PT WAS ADMITTED WITH PNEUMONIA. PT REPORTS HE LIVES AT HOME WITH HIS SPOUSE. PT REPORTS HE WAS IN SERVICES WITH [facility] PRIOR TO ADMISSION AND PLANS TO RESUME THIS AT DISCHARGE. CM NOTIFIED [facility] WHO IS SENDING REFERRAL TO [facility]. PT REPORTS THAT HE USES A WALKER AT HOME FOR AMBULATION. PT REPORTS HAVING A GRAB BAR AND SHOWER CHAIR. CM DISCUSSED ROLE. PLANS ARE FOR PATIENT TO DISCHARGE BACK HOME WITH [facility] ONCE MEDICALLY STABLE, POSSIBLY OVER THE WEEKEND. IF PATIENT DISCHARGES OVER THE WEEKEND CONTACT [facility] AND FAX THEM DISCHARGE ORDERS/SUMMARY. [facility] CONTACT: [phone] [facility] FAX :[phone].
--- NOTE | 2018-10-06 15:44 | NUR ---
DISCHARGE PLANNING. ANTICIPATED DISCHARGE TO HOME OVER THE WEEKEND IF PATIENT IS MEDICALLY READY. HOME HEALTH IS RECOMMENDED AT DISCHARGE. PATIENT IS CURRENT WITH [facility]. CLINICAL INFORMATION FAXED TO [facility]. SPOKE WITH [facility], AWARE OF PATIENTS POSSIBLE DISCHARGE OVER THE WEEKEND. GURINDER STATES SHE WILL PLACE PATIENT ON HH CALENDAR AND WILL RESUME HH SERVICES ONCE ORDERS RECEIVED. SHOULD PATIENT DISCHARGE PLEASE FAX ORDERS TO [facility]. THANK YOU [facility] CONTACT NUMBER IS FAX NUMBER .
[2018-10-06 15:58] VITALS: BP 105/69
--- NOTE | 2018-10-06 16:30 | NUR ---
UP IN RECLINER MOST OF SHIFT. VOIDS PER URINAL. AAAX4 VERY PLEASANT AND COOPERATIVE. IV LEFT AC. WOUND CARE CHANGED LEFT TOE WOUND. GOOD APPETITE. NO COMPLAINTS OF PAIN.
[2018-10-06 20:15] VITALS: BP 94/67
--- NOTE | 2018-10-07 03:32 | NUR ---
PATIENT IS ADVANCING IN HIS CARE PLAN. VITAL SIGNS STABLE WITH PATIENT HAVING NO COMPLAINTS OF PAIN OR NAUSEA. FULLY ORIENTED, PATIENT IS ABLE TO CALL APPROPRIATELY FOR NEEDS. PATIENTS IS SOA WITH ACTIVITY BUT BREATHING IS STABLE EVIDENCED BY SPOT OXYGENATION CHECKS. PATIENT HAS BEEN UP MULTIPLE TIMES TO BEDSIDE COMMODE AND CHAIR WITH ASSISTANCE INCIDENT FREE, BUT APPEARS WEAK AND UNSTABLE WHEN AMBULATING. CONTINUE PLAN OF CARE.
--- NOTE | 2018-10-07 04:26 | NUR ---
ASSUMED PATIENT CARE AT 1845. PATIENT IS ALERT AND ORIENTED X4. HE IS A HIGH FALL RISK RELATED TO HIS ADMITTING DIAGNOSIS, REPORTS OF FREQUENTS FALLS AT HOME, AND GONZALES FALL SCORE. PATIENT HAD SOME COMPLAINTS OF SOA WHICH REQUIRED RT FOR A BREATHING TREATMENT. HE REMAINS ON ROOM AIR. NURSE RECIEVED ORDER FROM HCP TO RESTART METOPROLOL. PATIENT WAS SINUS TACH IN 120'S, AFTER ADMINISTERING METOPROLOL HE IS NOW SINUS RHYTHM IN 60-70'S. HE IS PLEASANT AND COOPERATIVE WITH CARE.
[2018-10-07 04:45] VITALS: BP 117/80
[2018-10-07 07:13] VITALS: BP 141/77
[2018-10-07 11:43] VITALS: BP 110/60
[2018-10-07 16:05] VITALS: BP 112/63
--- NOTE | 2018-10-07 16:34 | NUR ---
PATIENT PREFERS TO SIT ON CHAIR. HAS NOT SLEPT ALL DAY. HE IS ALERT ORIENTED X4. DENIES COMPLAIN OF PAIN AT THIS TIME. RESPIRAITONS ARE NON LABORED. CONT ON ABT FOR URI AND NO ADVERSE REACTION NOTED. WILL CONT WITH PLAN OF CARE.
[2018-10-07 18:51] VITALS: BP 115/60
[2018-10-08 05:51] LABS: HEMOGLOBIN 12.4 gm/dL (14.0-18.0); MCH 30.4 pg (26.0-34.0); MCHC 32.8 g/dL (28.0-37.0); MCV 92.6 fL (80.0-100.0); RBC 4.1 mil/uL (4.50-6.00); RDW 17.1 % (10.5-14.5); WBC 4.2 thou/uL (4.0-11.0)
[2018-10-08 05:58] LABS: CALCIUM 8.5 mg/dL (8.5-10.1); POTASSIUM 4.1 mmol/L (3.5-5.1)
--- NOTE | 2018-10-08 06:12 | NUR ---
PATIENT IS SLOWLY PROGRESSING IN HIS CARE PLAN. VITAL SIGNS STABLE WITH PATIENT HAVING NO COMPLAINTS OF PAIN OR NAUSEA. PATIENT IS ORIENTED AND ABLE TO CALL APPROPRIATELY FOR NEEDS. BREATHING STABLE EVIDENCED BY SPOT OXYGENATION CHECKS DESPITE PATIENT SOMETIMES FEELING SOA. UP MULTIPLE TIMES WITH ASSISTANCE TO THE CHAIR AND BATHROOM INCIDENT FREE, PATIENT IS A HIGH FALL RISK. WOUND BANDAGE C/D/I. CONTINUE PLAN OF CARE.
[2018-10-08 07:30] VITALS: BP 122/59
[2018-10-08 15:50] VITALS: BP 122/53
[2018-10-08 19:40] VITALS: BP 114/47
[2018-10-09 04:02] VITALS: BP 142/71
--- NOTE | 2018-10-09 04:31 | NUR ---
PT MAKING PROGRESS TOWARDS GOALS. PT REPORTING THAT HE FEELS "A LITTLE BIT BETTER" EACH DAY. ON ROOM AIR AND DENIES ANY SOA WHILE AT REST. STATES HE HAS BEEN SLEEPING IN THE CHAIR DUE TO BEING UNABLE TO LIE FLAT IN THE BED.
[2018-10-09 07:31] VITALS: BP 140/60
--- NOTE | 2018-10-09 07:35 | HC ---
[facility] [place] [address] CONSULTATION Name: BETY XIE Room #: 362-P ADM IN M.R.#: [id number] Admission: 10/05/18 ������������������ Attend Phys: Ciro Monreal MD Discharge: ������������������ Date of : 35 Report #: [id number] THIS REPORT FOR: //name// CC: Ciro Monreal DATE OF SERVICE: 10/05/2018 CHIEF COMPLAINT: Traumatic wound to the right fifth toe and peripheral vascular disease. HISTORY OF PRESENT ILLNESS: This is an 83-year-old male patient with whom I am familiar from both recent hospitalization and then follow up in the outpatient clinic. He sustained a traumatic injury to his right great toe, sustained a hematoma. It was incised and drained. It was also noted to have a fracture beneath the hematoma. He has developed increasing respiratory difficulty and has been admitted to the hospital for treatment of bronchitis/pneumonia having failed outpatient therapy. Last time, he was here in the hospital, he was noted to have mild peripheral vascular disease, but there was no focal velocity acceleration to suggest hemodynamically significant stenosis. He is admitted now for further evaluation and treatment due to his declining respiratory status. I have asked to see him with regard to wound care. PAST MEDICAL HISTORY: Significant for prostate cancer in 1986, previous left elbow infection, diabetes mellitus, previous appendectomy, cholecystectomy, tonsillectomy, history of rheumatoid arthritis and prior myocardial infarction. SOCIAL HISTORY: The patient is a former smoker. He has no history of alcohol use. FAMILY HISTORY: Noncontributory. MEDICATIONS: Include Glucotrol, ProAir, Synthroid, Eliquis, Pacerone, Prozac, furosemide, K-Dur, prednisone, Plaquenil, Namenda, Crestor, [place], Levaquin, prednisone, iron, Unicomplex. ALLERGIES: CONTRAST DYE, DULOXETINE, REMICADE, PENICILLIN. REVIEW OF SYSTEMS: CONSTITUTIONAL: The patient denies fever, chills or weight loss. NEUROLOGICAL: The patient denies focal weakness, numbness or tingling. EYES: The patient denies visual changes, redness or drainage. ENT: The patient denies earache, nasal drainage or sore throat. CARDIOVASCULAR: The patient denies chest pain, palpitation or diaphoresis. PULMONARY: The patient does complain of cough that is nonproductive. He does complain of shortness of breath and orthopnea. GASTROINTESTINAL: The patient denies nausea, vomiting or abdominal pain. [address] [address] CONSULTATION Name: BETY XIE Room #: 362-P [facility] IN M.R.#: [id number] Admission: 10/05/18 ������������������ Attend Phys: Ciro Monreal MD Discharge: ������������������ Date of : 35 Report #: [id number] ORTHOPEDIC: The patient does have pain, swelling and ulceration to his right foot as discussed above. Other systems in a 14-point review of systems are negative. PHYSICAL EXAMINATION: VITAL SIGNS: At this time include temperature 36.5, pulse rate 113, respiratory rate 16, blood pressure 105/69. GENERAL: This is a chronically ill-appearing male patient who appears to be in minimal distress. HEENT: Head normocephalic. Nose and throat are clear. NECK: Supple. LUNGS: Diminished. HEART: Regular rhythm. ABDOMEN: Soft, bowel sounds present. EXTREMITIES: Demonstrate circular ulceration on the dorsal aspect of the right fifth toe. It is loom cleaner, a little bit of fibrin present, but is beginning to fill in. There is no exposed bone at this time. CLINICAL IMPRESSION: 1. Traumatic wound to the right fifth toe, status post incision and drainage and evacuation of hematoma. 2. Pneumonia, failing outpatient therapy. 3. Rheumatoid arthritis. 4. Diabetes mellitus. RECOMMENDATIONS: At this point in time, we will recommend topical gentamicin and Xeroform gauze to be changed daily to the foot, recommend a postop shoe for ambulation and for stabilization of the fracture on the toe. His cultures were positive for methicillin-sensitive Staphylococcus aureus last time that would be sensitive to Levaquin, so I think it is appropriate that he continue on intravenous Levaquin. That will benefit both his pulmonary status as well as his foot. I appreciate being asked to see him in consultation. ��������������������������������������������� <ELECTRONICALLY SIGNED> ���������������������������������������� By: Porter Riggins MD ��������������������������������������������� 10/09/18 0735 [id number] Porter Riggins MD /nt
--- NOTE | 2018-10-09 11:59 | NUR ---
report given to SS/rn as pt will transfer to SS after lunch, as they are waiting on pt to dc and then room clean.
--- NOTE | 2018-10-09 13:31 | NUR ---
drsg change completed on rt foot. pt denies any soa, but does complain of noted wheezes and a productive cough. pt ambulated in hallway w/ rn today, good endurance. pt on ra. iv access intact and w/o issue, given iv antibx today. pt w/ a good appetite for food and fluid. pt did have a bm today. pt noted to have a balanced, coordinated and sometimes unsteady gait, use of gait belt and walker. no family at bs today. pt states he will call family when he is in his new ss room. all belongings gathered by staff for pt transport to . pt denies co pain at this time and is ready to return to .
--- NOTE | 2018-10-09 13:57 | NUR ---
MACO reviewed chart and spoke with nursing and attending physician. Pt is progressing towards goals for discharge. Discharge home with services provided by [facility] is anticipated for tomorrow. paraplanner to update [facility]. Pt transferred to [facility]. MACO is following to assist as needed with discharge planning.
--- NOTE | 2018-10-09 13:59 | NUR ---
site planner informed [facility] that patient will dc home tomorrow.
[2018-10-09 14:16] VITALS: BP 138/68
--- NOTE | 2018-10-09 14:39 | NUR ---
PATIENT TRANSFERRED TO THE UNIT AT APPROX 1400. PATIENT SETTLED IN CHAIR WITH CHAIR ALARM. CALL LIGHT WITHIN REACH. PATIENT SITTING IN RECLINER.
--- NOTE | 2018-10-09 15:08 | NUR ---
WOUND FOLLOW UP: PT. WAS SEEN TODAY BY DR. STEEL AND MYSELF. PT. WOUND IS CLINICALLY BETTER TODAY. PT. IS IN GOOD SPIRITS AND IS HOPEFULLY TO GO HOME SOON. RECOMMENDATIONS: CONTINUE WITH CURRENT PLAN OF CARE. PT. AND STAFF NURSE WERE INSTRUCTED ON PLAN OF CARE.
[2018-10-09 20:40] VITALS: BP 138/68
--- NOTE | 2018-10-10 03:49 | NUR ---
Assumed pt. care at 1900. Pt. remains A&Ox4; swallows meds whole w/o difficulty. Remains cont. B&B; needs standby asst to utilize urinal/BR. Utilizes walker for mobility; gait steady. Blood sugars WNL. Breathing txs, as ordered w/o difficulty. DRSG to R foot remains C/D/I, at this time. Remains on IVABT/PNA; no adverse reactions noted. LAC SL flushed w/ NS w/o difficulty; + blood retun noted. Dry, non - productive cough noted. Glasses noted to face. Pt. has no c/o pain or discomfort. No s/s of acute distress noted. Pt asleep in recliner chair w/ call light/desired belongings within reach. Bed/chair alarm intact. PO fluids encouraged. Will continue to monitor.
[2018-10-10 07:32] VITALS: BP 122/70
[2018-10-10 09:49] VITALS: BP 122/70
--- NOTE | 2018-10-10 11:51 | NUR ---
ASSUMED CARE OF PATIENT THIS MORNING. PATIENT IS A&OX4. HE GETS UP W/MINIMUM ASSIST AND WALKER WHEN AMBULATING. PATIENT IS DIABETIC AND BLOOD SUGAR WAS CHECKED THIS MORNING AND IT WAS 84, NO INSULIN WAS GIVEN. PATIENT CAN BE HARD OF HEARING. HE VOIDS PER URINAL. LAST BOWEL MOVEMENT WAS ON 10/08. PATIENT TOLERATED HIS MORNING MEDS. COARSENESS/WHEEZING WAS HEARD UPON AUSCULTATION. PATIENT IS CURRENTLY SITTING IN CHAIR WITH CALL LIGHT WITHIN REACH. HE CALLS OUT APPROPRIATELY FOR ASSISTANCE. FALL PRECAUTIONS ARE IN PLACE.
--- NOTE | 2018-10-10 12:38 | NUR ---
WOUND FOLLOW UP: PT. WAS SEEN TODAY BY DR. STEEL AND MYSELF. PT. JEFRY-WOUND IS SLIGHTLY MACERATED AT THIS TIME. WOUND CARE ORDERS WERE UPDATED TODAY TO AID IN WOUND HEALING. RECOMMENDATIONS: CONTINUE WITH CURRENT PLAN OF CARE. PT. AND STAFF NURSE WERE INSTRUCTED ON PLAN OF CARE.
--- NOTE | 2018-10-10 12:46 | NUR ---
MACO reviewed chart and spoke with nursing. Pt was transferred to [facility] yesterday and is progressing towards goals for discharge. Discharge home with [facility] is anticipated for tomorrow. MACO spoke with intake at [facility], who confirms they are able to accept pt back on service. MACO met with pt and at bedside to provide update and discusss discharge plan. Both are aware and in agreement with discharge plan. MACO is following to assist as needed with discharge planning.
[2018-10-10 21:05] VITALS: BP 124/70
--- NOTE | 2018-10-11 03:56 | NUR ---
Assumed pt. care at 1900. Pt. remains A&Ox3; Swallows meds whole w/o difficulty. Remains cont. B&B. Ambulates w/ standby asst and walker; gait steady. Blood sugars WNL. Boot/DRSG to R foot remains C/D/I, at this time. Remains on IVABT/PNA; no adverse reactions noted. LAC; SL noted; flushed w/ NS w/o difficulty; + blood return noted. Dry, non - productive cough noted. Glasses noted to face. Remains on fall precautions. Last BM 10/10/18, per pt. Pt has no c/o pain or discomfort. No s/s of acute distress noted. Pt asleep in bed w/ call light/desired belongings within reach. Bed/chair alarm intact. PO fluids encouraged. Will continue to monitor.
[2018-10-11 08:45] VITALS: BP 161/71
--- NOTE | 2018-10-11 09:08 | NUR ---
ASSUMED PATIENT AND CARES AT 0715, PATIENT WOKE SITTING UP IN CHAIR, REPORTED PATIENT SLEPT IN BED WITH AIR MATTRESS IN PLACE AND FUNCTIONING, A&OX4, PAIN REPORTED 2/10, PATIENT WEARS GLASSES, LAC SALINE LOCK INTACT, NON-PRODUCTIVE COUGH NOTED, WAFFLE CUSHION IN PLACE IN CHAIR, DRESSING TO RIGHT 5TH TOE C/D/I, FALL PRECAUTIONS IN PLACE, PERSONAL BELONGINGS AND CALL LIGHT IN REACH, WILL CONTINUE TO MONITOR
--- NOTE | 2018-10-11 16:39 | NUR ---
I AGREE WITH NUSING ASSESSMENT DONE BY MAGDALENE/KEESHA. AND NURSING NOTE.
[2018-10-11 19:45] VITALS: BP 131/67
[2018-10-11 21:47] VITALS: BP 131/67
--- NOTE | 2018-10-12 06:38 | NUR ---
Assumed pt. care 1899. Remains A&Ox3; swallows meds whole w/o difficulty. Remains cont. B&B. Ambulates w/ standby asst and walker; gait steady. Blood sugars WNL. Glasses noted to face. Remains on IVABt/PNA; no adverse reactions noted. LAC SL; flushed w/ NS w/o difficulty; + blood return noted. Non - productive cough noted. 1+ edema noted to BLEs. Surgical boot/bandaide noted to wound on R foot. Pt denies pain or discomfort. No s/s of acute distress noted. Remains on fall precautions. Pt up to chair w/ bed/chair alarm intact. Call light/desired belongings within reach. Po fluids encouraged. Will continue to monitor.
[2018-10-12 07:52] LABS: HEMOGLOBIN 13.9 gm/dL (14.0-18.0); MCH 30.5 pg (26.0-34.0); MCV 92.4 fL (80.0-100.0); RBC 4.55 mil/uL (4.50-6.00); WBC 8.4 thou/uL (4.0-11.0)
[2018-10-12 08:06] LABS: ALBUMIN 3.2 g/dL (3.4-5.0); CREATININE 0.8 mg/dL (0.7-1.3); POTASSIUM 4.5 mmol/L (3.5-5.1); TOTAL BILIRUBIN 0.5 mg/dL (<0.1-1.0); TOTAL PROTEIN 6.2 g/dL (6.4-8.2)
[2018-10-12 08:30] VITALS: BP 137/69
[2018-10-12 08:36] VITALS: BP 137/69
--- NOTE | 2018-10-12 08:44 | NUR ---
ASSUMED PATIENT AND CARES AT 0715, PATIENT SITTING UP IN CHAIR, A&OX4, DENIES PAIN AND DISCOMFORT, LAC INTACT AND PATENT WITH FLUSH, DRIED BLOOD TO IV SITE, 3+ EDEMA TO BILAT FEET/ANKLES, SBA WITH WALKER FOR TRANSFERS AND AMBULATION, FALL PRECAUTIONS IN PLACE, AIR MATTRESS TO BED AND WAFFLE CUSHION FOR CHAIR, DRESSING TO RIGHT 5TH TOE INTACT, PERSONAL BELONGINGS AND CALL LIGHT IN REACH, WILL CONTINUE TO MONITOR
--- NOTE | 2018-10-12 11:44 | NUR ---
WOUND FOLLOW UP: PT. WAS SEEN TODAY BY DR. REDMOND AND MYSELF. PT. WOUND IS NOT MACERATED TODAY PREVIOUS VISIT. PT. STILL REPORTS THAT IT IS TENDER. SWELLING IS STILL A PROBLEM AND PT. WAS FOUND IN THE RECLINER WITH FEET DOWN UPON VISIT. PT. WAS INSTRUCTED AGAIN ON THE IMPORTANCE OF ELEVATION AND FEET WERE RAISED. RECOMMENDATIONS: CONTINUE WITH CURRENT PLAN OF CARE. PT. AND STAFF NURSE WERE INSTRUCTED ON PLAN OF CARE.
--- NOTE | 2018-10-12 13:22 | NUR ---
DISCHARGE NOTE: MACO reviewed chart and spoke with nursing and attending physician. Pt is medically stable for discharge home today with HH services. MACO met with pt at bedside to discuss discharge plan, as pt had mentioned to attending physician, that he may want SNF placement. MACO provided pt with list of in-network SNFs for review. Pt states he has changed his mind and would like to go home with HH. Pt states he feels strong enough, and has the support at home. HH services will be resumed with [facility]. MACO confirmed pt's home address and phone number. Pt's PCP is Dr. Monreal. MACO updated attending physician. Contact info for [facility] placed in pt's discharge summary. Pt's family will provide transportation home. No additional SW needs identified at this time, but is available to assist should needs arise.
[2018-10-12] MEDS ORDERED: METOPROLOL SUCC50 MG PO (15:41)
--- NOTE | 2018-10-12 15:51 | NUR ---
DISCHARGE ORDERS RECEIVED. PATIENT DISCHARGING TO HOME WITH [facility]. DISCHARGE/HOME HEALTH ORDERS AND DISCHARGE SUMMARY FAXED TO [facility] INTAKE. CALL PLACED TO [facility], SPOKE WITH STEFANIA. STEFANIA TO FACILITATE PATIENTS HOME HEALTH SERVICES. UNIT CM/MACO AWARE.
--- NOTE | 2018-10-12 17:31 | NUR ---
PATIENT DISCHARGED HOME WITH HH, NURSE DISCUSSED DISCHARGE INSTRUCTIONS AND MEDICATIONS WITH PATIENT AND , LAC SALINE LOCK REMOVED AND GAUZE AND TAPE PLACED, ALL BELONGINGS PACKED TO TAKEN HOME, PCP LEFT PRIOR TO SIGNING PRESCRIPTION AND WILL CALL SCRIPT IN ON TOMORROW, PATIENT AWARE, TRANSPORT REQUESTED TO TAKE PATIENT TO [facility]
== END 2018-10-12 18:05 | disposition home health service (06) | DRG 193 ==
LOC: 3W 08:56 → SICU 08:56 → 3W 10:03 → SICU 10-09 13:47 → ENTRNSPT 10-12 17:36 → SICU 10-12 18:05
PROVIDERS: ADMIT Family Medicine
DX: J18.9 Pneumonia, unspecified organism (principal); N17.0 Acute kidney failure with tubular necrosis; L03.115 Cellulitis of right lower limb; J44.1 Chronic obstructive pulmonary disease with (acute) exacerbation; J44.0 Chronic obstructive pulmonary disease with (acute) lower respiratory infection; E11.51 Type 2 diabetes mellitus with diabetic peripheral angiopathy without gangrene; M06.9 Rheumatoid arthritis, unspecified; L97.519 Non-pressure chronic ulcer of other part of right foot with unspecified severity; S92.911A Unspecified fracture of right toe(s), initial encounter for closed fracture; E11.65 Type 2 diabetes mellitus with hyperglycemia; J45.909 Unspecified asthma, uncomplicated; K59.00 Constipation, unspecified; N40.0 Benign prostatic hyperplasia without lower urinary tract symptoms; E11.621 Type 2 diabetes mellitus with foot ulcer; Z90.49 Acquired absence of other specified parts of digestive tract; R09.02 Hypoxemia; Z85.46 Personal history of malignant neoplasm of prostate; I25.2 Old myocardial infarction; Z87.891 Personal history of nicotine dependence; Z88.0 Allergy status to penicillin; Z88.8 Allergy status to other drugs, medicaments and biological substances; Z91.041 Radiographic dye allergy status; X58.XXXA Exposure to other specified factors, initial encounter; Y93.89 Activity, other specified; Y92.89 Other specified places as the place of occurrence of the external cause; Y99.8 Other external cause status
CPT/HCPCS: 10779; 10879; 15002

== ENCOUNTER → 2018-10-19 | Outpatient (CLI) | payer OTHER ==
[~2018-10-19] MED LIST changes: +BREO ELLIPTA 11 EACH IH; +LEVAQUIN 500 M500 M3 PO; +METOPROLOL SUCC50 MG PO; +PREDNISONE 20 M20 MG PO
== END ==
LOC: HYPER 10-11 13:29
DX: E11.621 Type 2 diabetes mellitus with foot ulcer (principal); L97.516 Non-pressure chronic ulcer of other part of right foot with bone involvement without evidence of necrosis; R21 Rash and other nonspecific skin eruption; I25.2 Old myocardial infarction; J45.909 Unspecified asthma, uncomplicated; M06.9 Rheumatoid arthritis, unspecified; Z79.84 Long term (current) use of oral hypoglycemic drugs; Z87.891 Personal history of nicotine dependence; Z90.49 Acquired absence of other specified parts of digestive tract; Z85.46 Personal history of malignant neoplasm of prostate

== ENCOUNTER → 2018-11-08 | Outpatient (CLI) | payer OTHER | LOC: HYPER 06:39 | DX: E11.621 Type 2 diabetes mellitus with foot ulcer (principal); L97.516 Non-pressure chronic ulcer of other part of right foot with bone involvement without evidence of necrosis; I25.2 Old myocardial infarction; J45.909 Unspecified asthma, uncomplicated; M06.9 Rheumatoid arthritis, unspecified; F41.9 Anxiety disorder, unspecified; F32.9 Major depressive disorder, single episode, unspecified; Z79.84 Long term (current) use of oral hypoglycemic drugs; Z87.891 Personal history of nicotine dependence; Z90.49 Acquired absence of other specified parts of digestive tract; Z85.46 Personal history of malignant neoplasm of prostate ==

== ENCOUNTER 2018-11-17 12:54 | Inpatient (IN) | payer OTHER ==
[~2018-11-17] VITALS: Ht 152.4 cm; Wt 71.2 kg
[2018-11-17] MEDS ORDERED: PREDNISONE 5 MG5 M1 (14:06)
[2018-11-17] MEDS ORDERED: ELIQUIS5 MG PO ×2 (14:07→14:08)
[2018-11-17 14:39] VITALS: BP 123/53
[2018-11-17 15:05] LABS: HEMATOCRIT 34.4 % (42.0-52.0); HEMOGLOBIN 11.4 gm/dL (14.0-18.0); MCH 30.2 pg (26.0-34.0); MCHC 33.1 g/dL (28.0-37.0); MCV 91.1 fL (80.0-100.0); RBC 3.78 mil/uL (4.50-6.00); RDW 17.8 % (10.5-14.5); WBC 4.8 thou/uL (4.0-11.0)
[2018-11-17 15:21] LABS: ALBUMIN 2.6 g/dL (3.4-5.0); CALCIUM 8.5 mg/dL (8.5-10.1); CREATININE 0.9 mg/dL (0.7-1.3); POTASSIUM 4.2 mmol/L (3.5-5.1); TOTAL BILIRUBIN 0.4 mg/dL (<0.1-1.0); TOTAL PROTEIN 5.7 g/dL (6.4-8.2)
[2018-11-17 19:34] LABS: TSH 2.794 uIU/mL (0.358-3.740)
[2018-11-17 19:41] VITALS: BP 119/51
[2018-11-18 04:10] VITALS: BP 128/52
[2018-11-18 07:56] VITALS: BP 96/61
[2018-11-18 14:32] VITALS: BP 111/60
[2018-11-18 19:11] VITALS: BP 112/56
[2018-11-19 04:30] VITALS: BP 130/65
[2018-11-19 08:11] VITALS: BP 113/60
--- NOTE | 2018-11-19 09:54 | HC ---
[facility] [place] [address] [place] [address] CONSULTATION Name: BETY XIE Room #: 452-P ADM IN M.R.#: [id number] Admission: 11/17/18 ������������������ Attend Phys: Ciro Monreal MD Discharge: ������������������ Date of : 35 Report #: [id number] THIS REPORT FOR: //name// CC: Ciro Monreal DATE OF SERVICE: 11/18/2018 WOUND CARE CONSULTATION REASON FOR CONSULTATION: Nonhealing diabetic ulcer of right fifth toe. HISTORY OF PRESENT ILLNESS: The patient is an 83-year-old gentleman who tells me he is a patient of Dr. Riggins in the clinic. Since June, he has had a nonhealing diabetic ulcer of the right fifth toe. Skin substitute such as PriMatrix may have been recently applied. The patient cannot give me a good history on this. The patient is admitted at this time due to falling multiple times a day with weakness. He is being evaluated for possible Parkinsonism versus diabetic neuropathy versus possible spinal stenosis and MRI of the spine is scheduled today. Wound Care has been consulted due to nonhealing wound of his right fifth toe. PAST MEDICAL HISTORY: 1. Diabetes mellitus type 2. 2. Diabetic neuropathy. 3. History of urinary tract infection. 4. History of weakness. 5. Rheumatoid arthritis. 6. History of myocardial infarction. ALLERGIES: IODINE DYE, DULOXETINE, INFLIXIMAB AND PENICILLIN. MEDICATIONS: Include metoprolol, fluticasone, Mucinex, Glucotrol, Synthroid, Eliquis, amiodarone, Prozac, Lasix, K-Dur, Crestor, acetaminophen, prednisone, iron, Plaquenil, Namenda and oxybutynin. PAST SURGICAL HISTORY: Includes operation of left elbow for infection in 1970s, history of prostate cancer, appendectomy, cholecystectomy, tonsillectomy as a child. PAST SURGICAL HISTORY: Back surgery in 1979 and 2015. PHYSICAL EXAMINATION: GENERAL: Shows a well-appearing 83-year-old gentleman, sitting in a chair. HEENT: Mucous membranes are moist. NECK: Supple. HEART: Shows regular rate and rhythm. [facility] [address] [address] CONSULTATION Name: ROJASPINKY Room #: 452-P [facility] IN M.R.#: [id number] Admission: 11/17/18 ������������������ Attend Phys: Ciro Monreal MD Discharge: ������������������ Date of : 35 Report #: [id number] ABDOMEN: Soft. EXTREMITIES: Shows a small 2 x 2 x 0.1 cm ulcer of the right fifth toe dorsum over the distal interphalangeal joint. There is adherent eschar over this. There is a slight amount of purulent drainage and wound cultures are taken. Wound care nurse probed this down to bone. IMPRESSION: 1. Debility with instability. 2. Diabetes mellitus type 2. 3. History of rheumatoid arthritis. 4. Diabetic neuropathy. 5. Nonhealing diabetic foot ulcer, right fifth toe. PLAN: The patient is going for an MRI of the spine today. We will also add an MRI of the right fifth toe to rule out osteomyelitis of the toe. Wound care team will follow. Dress with Xeroform dressing and foam border. ��������������������������������������������� <ELECTRONICALLY SIGNED> ���������������������������������������� By: Kris Yost MD ��������������������������������������������� 11/19/18 0954 [id number] 0447 Kris Yost MD /nt
[2018-11-19 14:19] VITALS: BP 103/55
[2018-11-19 20:00] VITALS: BP 104/63
[2018-11-20 04:00] VITALS: BP 111/59
[2018-11-20 08:16] VITALS: BP 105/58
[2018-11-20 14:49] VITALS: BP 109/63
[2018-11-20 19:41] VITALS: BP 130/79
[2018-11-21 05:24] VITALS: BP 135/64
[2018-11-21 07:54] VITALS: BP 107/50
[2018-11-21 14:46] VITALS: BP 117/64
[2018-11-21 19:51] VITALS: BP 121/65
[2018-11-22 07:19] VITALS: BP 105/53
== END 2018-11-22 14:54 | DRG 551 ==
LOC: 4W 12:54
PROVIDERS: Psychiatry & Neurology Neurology; ADMIT Family Medicine
DX: M48.061 Spinal stenosis, lumbar region without neurogenic claudication (principal); E43 Unspecified severe protein-calorie malnutrition; N17.9 Acute kidney failure, unspecified; E11.9 Type 2 diabetes mellitus without complications; J45.909 Unspecified asthma, uncomplicated; E03.9 Hypothyroidism, unspecified; E11.44 Type 2 diabetes mellitus with diabetic amyotrophy; M62.84 Sarcopenia; S80.929A Unspecified superficial injury of unspecified lower leg, initial encounter; X58.XXXA Exposure to other specified factors, initial encounter; E11.40 Type 2 diabetes mellitus with diabetic neuropathy, unspecified; E11.621 Type 2 diabetes mellitus with foot ulcer; L97.519 Non-pressure chronic ulcer of other part of right foot with unspecified severity; E11.51 Type 2 diabetes mellitus with diabetic peripheral angiopathy without gangrene; Z88.0 Allergy status to penicillin; Z88.8 Allergy status to other drugs, medicaments and biological substances; I25.2 Old myocardial infarction; Z91.041 Radiographic dye allergy status; Z79.899 Other long term (current) drug therapy; Z90.49 Acquired absence of other specified parts of digestive tract; Z85.46 Personal history of malignant neoplasm of prostate; Y93.89 Activity, other specified; Y99.8 Other external cause status; Y92.89 Other specified places as the place of occurrence of the external cause; Z87.440 Personal history of urinary (tract) infections; Z68.30 Body mass index [BMI] 30.0-30.9, adult
CPT/HCPCS: 10047

== ENCOUNTER → 2018-11-29 | Outpatient (CLI) | payer OTHER ==
[~2018-11-29] MED LIST changes: +PREDNISONE 5 MG5 M1
== END ==
LOC: PAIN 09-26 12:20 → HYPER 11-22 11:32
DX: E11.621 Type 2 diabetes mellitus with foot ulcer (principal); L97.516 Non-pressure chronic ulcer of other part of right foot with bone involvement without evidence of necrosis; L03.031 Cellulitis of right toe; I25.2 Old myocardial infarction; M06.9 Rheumatoid arthritis, unspecified; R54 Age-related physical debility; J45.909 Unspecified asthma, uncomplicated; Z87.891 Personal history of nicotine dependence; Z79.84 Long term (current) use of oral hypoglycemic drugs; Z85.46 Personal history of malignant neoplasm of prostate; Z87.01 Personal history of pneumonia (recurrent)

== ENCOUNTER → 2018-12-06 | Outpatient (CLI) | payer OTHER | LOC: HYPER 06:48 | DX: E11.621 Type 2 diabetes mellitus with foot ulcer (principal); L97.516 Non-pressure chronic ulcer of other part of right foot with bone involvement without evidence of necrosis; L89.892 Pressure ulcer of other site, stage 2; L97.521 Non-pressure chronic ulcer of other part of left foot limited to breakdown of skin; E11.622 Type 2 diabetes mellitus with other skin ulcer; L89.323 Pressure ulcer of left buttock, stage 3; L98.411 Non-pressure chronic ulcer of buttock limited to breakdown of skin; L89.153 Pressure ulcer of sacral region, stage 3; L98.491 Non-pressure chronic ulcer of skin of other sites limited to breakdown of skin; S90.421A Blister (nonthermal), right great toe, initial encounter; S90.422A Blister (nonthermal), left great toe, initial encounter; I25.2 Old myocardial infarction; J45.909 Unspecified asthma, uncomplicated; M06.9 Rheumatoid arthritis, unspecified; F41.9 Anxiety disorder, unspecified; F32.9 Major depressive disorder, single episode, unspecified; Z79.84 Long term (current) use of oral hypoglycemic drugs; Z87.891 Personal history of nicotine dependence; Z85.46 Personal history of malignant neoplasm of prostate; X58.XXXA Exposure to other specified factors, initial encounter; Y93.89 Activity, other specified; Y92.89 Other specified places as the place of occurrence of the external cause; Y99.8 Other external cause status ==

== ENCOUNTER → 2018-12-27 | Outpatient (CLI) | payer OTHER | LOC: HYPER 06:27 | DX: E11.621 Type 2 diabetes mellitus with foot ulcer (principal); L97.516 Non-pressure chronic ulcer of other part of right foot with bone involvement without evidence of necrosis; L89.893 Pressure ulcer of other site, stage 3; L97.521 Non-pressure chronic ulcer of other part of left foot limited to breakdown of skin; S90.822D Blister (nonthermal), left foot, subsequent encounter; I25.2 Old myocardial infarction; R54 Age-related physical debility; M06.9 Rheumatoid arthritis, unspecified; J45.909 Unspecified asthma, uncomplicated; Z87.891 Personal history of nicotine dependence; Z85.46 Personal history of malignant neoplasm of prostate; Z79.84 Long term (current) use of oral hypoglycemic drugs; X58.XXXD Exposure to other specified factors, subsequent encounter ==

== ENCOUNTER → 2019-01-10 | Outpatient (CLI) | payer OTHER | LOC: HYPER 06:27 | DX: E11.621 Type 2 diabetes mellitus with foot ulcer (principal); L97.516 Non-pressure chronic ulcer of other part of right foot with bone involvement without evidence of necrosis; E11.622 Type 2 diabetes mellitus with other skin ulcer; L89.323 Pressure ulcer of left buttock, stage 3; L98.411 Non-pressure chronic ulcer of buttock limited to breakdown of skin; L84 Corns and callosities; M06.9 Rheumatoid arthritis, unspecified; I25.2 Old myocardial infarction; R54 Age-related physical debility; A41.9 Sepsis, unspecified organism; J45.909 Unspecified asthma, uncomplicated; F41.9 Anxiety disorder, unspecified; F32.9 Major depressive disorder, single episode, unspecified; Z87.891 Personal history of nicotine dependence; Z79.84 Long term (current) use of oral hypoglycemic drugs; Z85.46 Personal history of malignant neoplasm of prostate; Z87.01 Personal history of pneumonia (recurrent) ==

== ENCOUNTER → 2019-01-29 | Outpatient (CLI) | payer OTHER ==
[~2019-01-29] VITALS: Ht 162.6 cm; Wt 73.5 kg
[~2019-01-29] MED LIST changes: +ALBUTEROL0.63 MG/3 INH; +MAGOX 400400 MG PO; -PACERONE 200 M200 M1; -PREDNISONE 5 MG5 M1; +TOPROL XL25 MG PO; +VENTOLIN HFA 1818 GM INH; +ZINC50 MG PO
[2019-01-29 10:07] LABS: HEMATOCRIT 34.5 % (42.0-52.0); HEMOGLOBIN 11.3 gm/dL (14.0-18.0)
--- NOTE | 2019-01-29 16:06 | P ---
[facility] [place] [address] [place] [address] PROCEDURE REPORT Name: BETY XIE Room #: REG [facility]#: [id number] Admission: 01/29/19 Attend Phys: Fabrizio Howell MD Discharge: Date of : 35 Report #: [id number] THIS REPORT FOR: //name// CC: Fabrizio Evans DATE OF SERVICE: 01/29/2019 OUTPATIENT UPPER ENDOSCOPY REPORT BRIEF HISTORY: The patient is an 83-year-old male who had GI bleeding earlier this year and polyps removed, which were thought to be the source of bleeding. He is anticoagulated with Eliquis. He was recently found to have blood in the stool at a rehab facility. Stools have been black on iron. PREOPERATIVE DIAGNOSES: 1. Blood loss anemia. 2. Intermittent dysphagia for pills. POSTOPERATIVE DIAGNOSES: 1. Prepyloric gastritis with slight bleeding. 2. Retained solid material in stomach consistent with gastroparesis. 3. Dysphagia. MEDICATIONS: Deep sedation with propofol per anesthesia. SPECIMEN: Biopsies of prepyloric gastritis. ESTIMATED BLOOD LOSS: 5 mL. PROCEDURE: EGD with hemostasis, biopsy and West dilation. FINDINGS: Prior to propofol sedation, the procedure of upper endoscopy was reviewed with the patient as well potential risks, benefits, and complications. He indicates he understands and desires to proceed. PROCEDURE IN DETAIL: The patient in left lateral decubitus position, the Olympus video endoscope was inserted into the cervical esophagus under direct vision without difficulty. Examination of this organ through its entire length revealed normal esophageal mucosa down to the squamocolumnar junction. Squamocolumnar junction was inspected and noted to be unremarkable. No ulcers, strictures or masses were seen. A hiatus hernia was not seen. The scope was advanced into the stomach, was examined on end view as well as retroflexed views. There was a large amount of retained food material in the body of the [facility] [address] [place] [address] PROCEDURE REPORT Name: BETY XIE Room #: REG [facility]#: [id number] Admission: 01/29/19 Attend Phys: Fabrizio Howell MD Discharge: Date of : 35 Report #: [id number] stomach consistent with a bezoar in view of his diabetes. This precluded complete views of some parts of the stomach in particularly the body and fundus. The scope was advanced distally. There was a small amount of retained food material. There was a pattern of diffuse gastritis. In the prepyloric antrum essentially at the pylorus, there was noted to be patchy areas of gastritis around the pylorus and there was some slight oozing of bright red blood. A large amount of blood was not seen in the stomach. The scope was advanced across the pylorus. The duodenal bulb and postbulbar duodenal sweep were inspected and noted to be unremarkable. At that point, the scope was withdrawn back into the stomach. The area of oozing was again observed. There were a couple of erosions. The area was washed. I did not see obvious evidence of vascular ectasias. However, it is possible that he could have vascular ectasias as a source of bleeding. He did have erosions, but significant ulceration was not seen. Biopsies were obtained. We then treated the area with argon plasma coagulation with good control of the bleeding. At that point, the scope was slowly withdrawn and careful circumferential views were obtained. The patient tolerated the procedure well. CONDITION OF THE PATIENT UPON DISCHARGE: Following procedure, the patient was drowsy and arousable. He will be discharged home when fully ambulatory. INSTRUCTIONS TO THE PATIENT AND FAMILY AT THE TIME OF DISCHARGE: The patient has evidence of retained food in his stomach consistent with a bezoar. We will have him see a dietitian. This is likely result of his diabetes. There was no evidence of outlet obstruction. He did have some oozing essentially at the level of the pylorus and prepyloric antrum. Etiology is not entirely clear. We will follow up on biopsies in particular to make sure he does not have evidence of H. pylori. The patient has been on Eliquis and will discuss with his primary physician. We will obtain his CBC today for further evaluation of his anemia. Again, there was very slight oozing. There was no significant retained blood in the stomach. However, of Eliquis, he may have greater blood loss. We will follow up on biopsies and make further recommendations. <ELECTRONICALLY SIGNED> By: Fabrizio Howell MD 01/29/19 1606 0935 1530 Fabrizio Howell MD /nt
--- NOTE | 2019-01-30 15:07 | PATH ---
[facility] [place] [address] PATHOLOGY RPT PROCEDURE Name: JABIER XIE CESAR [id number] Admission: 01/29/19 Date of : 35 Discharge: Report #: [id number] Path Case #: [id number] [facility] Accession Number: [id number] . 01 Material submitted: . stomach - GASTRITIS . 01 Clinical history: . Pre-OP DX: Anemia, dysphagia Post-OP DX: Gastritis, hemorrhage, dysphagia, retained food, gastroparesis . 02 Diagnosis: Stomach, biopsy: - Reactive gastropathy, mild. - No evidence of Helicobacter pylori on immunoperoxidase stain. (SKM:pit; 01/30/2019) QTP/01/30/2019 . 02 Electronically signed: . Edenilson Prajapati MD, Pathologist NPI- [id number] . 01 Gross description: . Received in formalin labeled "Jabier Xie, BX gastritis, rule out H. pylori," are 5 segments of kothari soft tissue measuring 1.3 x 0.8 x 0.4 cm in aggregate dimensions and ranging from 0.3 to 0.6 cm in maximum dimension. The specimen is submitted entirely in cassette A1. (TSD; 01/29/2019) TOB/TOB . 02 Pathologist provided ICD-10: K31.9, D64.9, R13.10 . 02 CPT . 957059 Specimen Comment: A courtesy copy of this report has been sent to Specimen Comment: [phone], . Specimen Comment: Report sent to / DR FLETCHER Specimen Comment: A duplicate report has been generated due to demographic updates. Performed at: [address] [id number] MD Jose Ledezma MD Phone: [phone] Performed at: [address] [id number] [address] [address] PATHOLOGY RPT PROCEDURE Name: JABIER XIE Room #: REG CL[facility] Pérez#: [id number] Admission: 01/29/19 Date of : 35 Discharge: Report #: [id number] Path Case #: [id number] MD Latoya Cano MD Phone: [phone]
== END | disposition home or self-care (01) ==
LOC: GI 07:38 → HYPER 01-31 16:18
PROVIDERS: Specialist
DX: K31.9 Disease of stomach and duodenum, unspecified (principal); R13.10 Dysphagia, unspecified; K31.84 Gastroparesis; I10 Essential (primary) hypertension; E11.9 Type 2 diabetes mellitus without complications; I48.91 Unspecified atrial fibrillation; E78.5 Hyperlipidemia, unspecified; I25.2 Old myocardial infarction; F32.9 Major depressive disorder, single episode, unspecified; F41.9 Anxiety disorder, unspecified; J45.909 Unspecified asthma, uncomplicated; G47.30 Sleep apnea, unspecified; N28.9 Disorder of kidney and ureter, unspecified; K21.9 Gastro-esophageal reflux disease without esophagitis; F03.90 Unspecified dementia, unspecified severity, without behavioral disturbance, psychotic disturbance, mood disturbance, and anxiety; M06.9 Rheumatoid arthritis, unspecified; Z79.01 Long term (current) use of anticoagulants; Z98.41 Cataract extraction status, right eye; Z90.49 Acquired absence of other specified parts of digestive tract; Z86.010 Personal history of colon polyps; Z98.42 Cataract extraction status, left eye; Z85.46 Personal history of malignant neoplasm of prostate; Z79.899 Other long term (current) drug therapy; Z98.890 Other specified postprocedural states; Z88.0 Allergy status to penicillin; Z91.041 Radiographic dye allergy status; Z88.8 Allergy status to other drugs, medicaments and biological substances; Z87.01 Personal history of pneumonia (recurrent); Z87.440 Personal history of urinary (tract) infections
CPT/HCPCS: 62110; 62900

== ENCOUNTER → 2019-01-31 | Outpatient (CLI) | payer OTHER | LOC: HYPER 07:01 | DX: E11.621 Type 2 diabetes mellitus with foot ulcer (principal); L89.890 Pressure ulcer of other site, unstageable; L97.516 Non-pressure chronic ulcer of other part of right foot with bone involvement without evidence of necrosis; S91.101D Unspecified open wound of right great toe without damage to nail, subsequent encounter; S91.104D Unspecified open wound of right lesser toe(s) without damage to nail, subsequent encounter; R54 Age-related physical debility; I25.2 Old myocardial infarction; J45.909 Unspecified asthma, uncomplicated; M06.9 Rheumatoid arthritis, unspecified; F41.9 Anxiety disorder, unspecified; F32.9 Major depressive disorder, single episode, unspecified; Z79.84 Long term (current) use of oral hypoglycemic drugs; Z87.891 Personal history of nicotine dependence; Z90.49 Acquired absence of other specified parts of digestive tract; Z85.46 Personal history of malignant neoplasm of prostate; X58.XXXD Exposure to other specified factors, subsequent encounter ==

== ENCOUNTER → 2019-02-21 | Outpatient (CLI) | payer OTHER | LOC: HYPER 06:58 | DX: E11.621 Type 2 diabetes mellitus with foot ulcer (principal); L97.516 Non-pressure chronic ulcer of other part of right foot with bone involvement without evidence of necrosis; M06.9 Rheumatoid arthritis, unspecified; I25.2 Old myocardial infarction; A41.9 Sepsis, unspecified organism; R54 Age-related physical debility; J45.909 Unspecified asthma, uncomplicated; F41.9 Anxiety disorder, unspecified; F32.9 Major depressive disorder, single episode, unspecified; Z90.49 Acquired absence of other specified parts of digestive tract; Z87.891 Personal history of nicotine dependence; Z79.84 Long term (current) use of oral hypoglycemic drugs; Z85.46 Personal history of malignant neoplasm of prostate; Z87.01 Personal history of pneumonia (recurrent) ==

== ENCOUNTER → 2019-03-12 | Outpatient (CLI) | payer OTHER | LOC: HYPER 07:00 | DX: E11.621 Type 2 diabetes mellitus with foot ulcer (principal); L97.516 Non-pressure chronic ulcer of other part of right foot with bone involvement without evidence of necrosis; L84 Corns and callosities; M06.9 Rheumatoid arthritis, unspecified; J45.909 Unspecified asthma, uncomplicated; I25.2 Old myocardial infarction; R54 Age-related physical debility; F41.9 Anxiety disorder, unspecified; F32.9 Major depressive disorder, single episode, unspecified; Z87.891 Personal history of nicotine dependence; Z85.46 Personal history of malignant neoplasm of prostate; Z90.49 Acquired absence of other specified parts of digestive tract; Z79.84 Long term (current) use of oral hypoglycemic drugs; Z79.01 Long term (current) use of anticoagulants ==

== ENCOUNTER → 2019-03-28 | Outpatient (CLI) | payer OTHER | LOC: HYPER 07:10 | DX: E11.621 Type 2 diabetes mellitus with foot ulcer (principal); L97.516 Non-pressure chronic ulcer of other part of right foot with bone involvement without evidence of necrosis; S91.104D Unspecified open wound of right lesser toe(s) without damage to nail, subsequent encounter; R54 Age-related physical debility; I25.2 Old myocardial infarction; J45.909 Unspecified asthma, uncomplicated; M06.9 Rheumatoid arthritis, unspecified; F41.9 Anxiety disorder, unspecified; F32.9 Major depressive disorder, single episode, unspecified; Z87.891 Personal history of nicotine dependence; Z90.49 Acquired absence of other specified parts of digestive tract; Z85.46 Personal history of malignant neoplasm of prostate; Z79.84 Long term (current) use of oral hypoglycemic drugs; X58.XXXD Exposure to other specified factors, subsequent encounter ==

== ENCOUNTER → 2019-04-03 | Outpatient (CLI) | payer OTHER | LOC: MRI 06:55 | DX: M19.071 Primary osteoarthritis, right ankle and foot (principal); L97.519 Non-pressure chronic ulcer of other part of right foot with unspecified severity; M86.8X7 Other osteomyelitis, ankle and foot; L03.115 Cellulitis of right lower limb ==

== ENCOUNTER → 2019-04-11 | Outpatient (CLI) | payer OTHER | LOC: HYPER 05:46 → RAD 05:46 | DX: E11.621 Type 2 diabetes mellitus with foot ulcer (principal); L97.516 Non-pressure chronic ulcer of other part of right foot with bone involvement without evidence of necrosis; L84 Corns and callosities; M06.9 Rheumatoid arthritis, unspecified; J45.909 Unspecified asthma, uncomplicated; I25.2 Old myocardial infarction; R54 Age-related physical debility; Z87.891 Personal history of nicotine dependence; Z85.46 Personal history of malignant neoplasm of prostate; Z79.84 Long term (current) use of oral hypoglycemic drugs; Z79.01 Long term (current) use of anticoagulants; Z90.49 Acquired absence of other specified parts of digestive tract ==

== ENCOUNTER → 2019-04-25 | Outpatient (CLI) | payer OTHER | LOC: HYPER 08:05 | DX: E11.621 Type 2 diabetes mellitus with foot ulcer (principal); L97.516 Non-pressure chronic ulcer of other part of right foot with bone involvement without evidence of necrosis; L84 Corns and callosities; I25.2 Old myocardial infarction; M06.9 Rheumatoid arthritis, unspecified; R54 Age-related physical debility; J45.909 Unspecified asthma, uncomplicated; F41.9 Anxiety disorder, unspecified; F32.9 Major depressive disorder, single episode, unspecified; Z79.84 Long term (current) use of oral hypoglycemic drugs; Z87.891 Personal history of nicotine dependence; Z85.46 Personal history of malignant neoplasm of prostate ==

== ENCOUNTER → 2019-05-16 | Outpatient (CLI) | payer OTHER | LOC: HYPER 08:21 | DX: E11.621 Type 2 diabetes mellitus with foot ulcer (principal); L97.516 Non-pressure chronic ulcer of other part of right foot with bone involvement without evidence of necrosis; I25.2 Old myocardial infarction; J45.909 Unspecified asthma, uncomplicated; M06.9 Rheumatoid arthritis, unspecified; F41.9 Anxiety disorder, unspecified; F32.9 Major depressive disorder, single episode, unspecified; Z79.84 Long term (current) use of oral hypoglycemic drugs; Z87.891 Personal history of nicotine dependence; Z90.49 Acquired absence of other specified parts of digestive tract; Z85.46 Personal history of malignant neoplasm of prostate ==

== ENCOUNTER → 2019-07-05 | Outpatient (CLI) | payer OTHER | LOC: RAD 09:15 | DX: M25.551 Pain in right hip (principal) ==

== ENCOUNTER → 2019-07-05 | Outpatient (CLI) | payer OTHER | LOC: HYPER 09:58 | DX: E11.621 Type 2 diabetes mellitus with foot ulcer (principal); L97.516 Non-pressure chronic ulcer of other part of right foot with bone involvement without evidence of necrosis; I25.2 Old myocardial infarction; R54 Age-related physical debility; M06.9 Rheumatoid arthritis, unspecified; J45.909 Unspecified asthma, uncomplicated; F41.9 Anxiety disorder, unspecified; F32.9 Major depressive disorder, single episode, unspecified; Z87.891 Personal history of nicotine dependence; Z90.49 Acquired absence of other specified parts of digestive tract; Z85.46 Personal history of malignant neoplasm of prostate; Z79.84 Long term (current) use of oral hypoglycemic drugs ==

== ENCOUNTER 2019-07-23 10:04 | Inpatient (IN) | payer OTHER ==
[~2019-07-23] VITALS: Ht 167.6 cm; Wt 76.0 kg
[2019-07-23 12:51] VITALS: BP 146/59
[2019-07-23 15:38] LABS: ABSOLUTE NEUTROPHILS 9.7 thou/uL (1.4-8.2); BASOPHILS 0.1 % (0.0-2.0); EOSINOPHILS 0.1 % (0.0-3.0); HEMOGLOBIN 12.4 gm/dL (14.0-18.0); LYMPHOCYTES 4.1 % (24.0-44.0); MCH 30.3 pg (26.0-34.0); MCHC 32.6 g/dL (28.0-37.0); MONOCYTES 4.3 % (1.0-8.0); POLYS 91.4 % (36.0-66.0); RBC 4.09 mil/uL (4.50-6.00); RDW 17.1 % (10.5-14.5); WBC 10.7 thou/uL (4.0-11.0)
[2019-07-23 15:49] LABS: ALBUMIN 3.2 g/dL (3.4-5.0); CREATININE 1.1 mg/dL (0.7-1.3); POTASSIUM 5.5 mmol/L (3.5-5.1); TOTAL BILIRUBIN 0.8 mg/dL (<0.1-1.0); TOTAL PROTEIN 6.5 g/dL (6.4-8.2)
[2019-07-23 16:12] LABS: PLATELET COUNT 78 thou/uL (150-400)
[2019-07-23 16:50] VITALS: BP 118/51
--- NOTE | 2019-07-23 20:08 | NUR ---
PATIENT ADMITTED TO ROOM AT THIS TIME WITH DX OF PNEUMONIA/HYPOXIA. HE IS ON O2 VIA NC AT 2LPM. HE DENIES PAIN. AMBULATES WITH STAND BY ASSIST. IV STARTED TO LEFT FOREARM. WILL CONT WITH PLAN OF CARE.
[2019-07-23 20:40] VITALS: BP 126/56
[2019-07-23 23:30] VITALS: BP 164/73
[2019-07-24 04:05] VITALS: BP 147/66
--- NOTE | 2019-07-24 04:46 | NUR ---
Received pt. on 1.5 L/NC with o2 sat greater than 90%. Reported shortness of breath with exertion. Coughing up kothari thick sputum. He slept some. Bed alarm on for safety and he calls appropriately. Voiding per urinal.Will continue to monitor.
[2019-07-24 07:49] VITALS: BP 149/75
--- NOTE | 2019-07-24 09:58 | 2DMMODE ---
[facility] [email or web address] [address] 2 D/M-MODE ECHOCARDIOGRAM Name: BETY XIE Room #: 364-P ADM IN M.R.#: [id number] Admission: 07/23/19 Attend Phys: Ciro Monreal MD Discharge: Date of : 35 Report #: [id number] THIS REPORT FOR: cc: Ciro Monreal MD, Neal A. MD Lundgren,Sandeep De Anda MD [facility] ~ THIS REPORT FOR: //name// APPROVED REPORT Study performed: 07/24/2019 08:30:23 EXAM: Comprehensive 2D, Doppler, and color-flow Echocardiogram Patient Location: Echo lab Room #: 364 BSA: 1.90 HR: 66 bpm BP: 147/66 mmHg Rhythm: NSR Other Information Study Quality: Adequate Indications Congestive Heart Failure Diabetes Dyspnea CAD Hypertension/HDD Aortic Valve AoV Peak Cam.: 1.12 m/s AO Peak Gr.: 4.98 mmHg LVOT Max P.07 mmHg LVOT Max V: 0.88 m/s Mitral Valve E/A Ratio: 0.5 MV Decel. Time: 335.08 ms MV E Max Cam.: 0.74 m/s MV A Cam.: 1.44 m/s MV PHT: 97.17 ms IVRT: 207.61 ms [facility] [place] [address] 2 D/M-MODE ECHOCARDIOGRAM Name: MIGDALIAGillianBETY Room #: 364-P ADM IN M.R.#: [id number] Admission: 07/23/19 Attend Phys: Ciro Monreal, Discharge: Date of : 35 Report #: [id number] Pulmonary Vein P Vein S: 0.50 m/s P Vein A: 0.26 m/s P Vein D: 0.26 m/s P Vein A Dur.: 92.3 msec P Vein S/D Ratio: 1.92 Left Ventricle The left ventricle is normal size. Regional wall motion is not well visualized but grossly normal. Left ventricular systolic function is borderline. LVEF is 50%. Mild diastolic dysfunction is present (impaired relaxation pattern). Right Ventricle The right ventricle is normal size. The right ventricular systolic function is normal. Aortic Valve The Aortic valve is sclerotic. Trace to mild aortic regurgitation. There is no aortic valvular stenosis. Mitral Valve Mild mitral annular calcification; calcified posterior mitral leaflet. Mild mitral regurgitation. No evidence of mitral valve stenosis. Tricuspid Valve The tricuspid valve is normal in structure. Great Vessels IVC is normal in size and collapses >50% with inspiration. Pericardium There is no pericardial effusion. There is no pleural effusion. <Conclusion> Technically limited study Left ventricular systolic function is borderline. Regional wall motion is not well visualized but grossly normal. LVEF is 50%. Mild diastolic dysfunction The aortic valve is sclerotic. Trace to mild aortic regurgitation, no stenosis. Mild mitral annular calcification; calcified posterior mitral leaflet. Mild mitral regurgitation [facility] [address] [place] [address] 2 D/M-MODE ECHOCARDIOGRAM Name: ROJASBETY Room #: 364-P ADM IN M.R.#: [id number] Admission: 07/23/19 Attend Phys: Ciro Monreal, Discharge: Date of : 35 Report #: [id number] Pulmonary artery pressure could not be reliably ascertained. There is no pericardial effusion. <ELECTRONICALLY SIGNED> By: Sandeep Maguire MD, FAC 07/24/19 0957 0957 6 Sandeep Maguire MD, FACC /INF
--- NOTE | 2019-07-24 16:00 | NUR ---
INITIAL ASSESSMENT: SW reviewed chart and spoke with nursing. Pt was a direct admission from Dr. Monreal's office yesterday due to pneumonia. Pt with hx of CHF. Pt is currently on IV abx and O2. Cardiology consulted. SW met with pt and at bedside. Introduced role of SW. Pt is alert/orientated x 4. Pt and spouse live at home. 2 steps to enter the home. No steps inside. Prior to admission, pt was using a walker. Pt also has a rollator walker. Pt has used [facility] and been to [facility] SNF in the past. Pt's PCP is Dr. Monreal. Pt is aware that he may need home O2 at time of discharge. Therapy ordered to evaluate pt for discharge needs. SW is following to assist as needed with discharge planning.
[2019-07-24 16:57] VITALS: BP 149/70
--- NOTE | 2019-07-24 17:32 | NUR ---
ASSUMED CARE OF PT AT 0700. PT AOX4 IN NO ACUTE DISTRESS. BREATHING COMFORTALBY ON SUPPLEMENTAL OXYGEN. DURING SPEECH EVAL, NOTED LUMP TO RIGHT SIDE OF THROAT THAT PATIENT HAS NOTICED FOR APPROX 2 MONTHS. ENT CONSULTED - [employer] [facility] [facility]OS[facility] EQUIPMENT AT BEDSIDE FOR PROCEDURE. UP W/ 1 ASSIST AND WALKER TO BR. USING URINAL. IV ABX INFUSING PER ORDER. SUGARS WELL CONTROLLED. PT PROGRESSING TOWARD POC GOALS.
[2019-07-24 19:37] VITALS: BP 137/68
--- NOTE | 2019-07-25 04:33 | NUR ---
Pt. stated he slept well during the night. He slept in the recliner chair stating it's more comfortable in the chair. Up with assist to bathroom using walker and had bm. Voiding per urinal except unable to measure x1 when he had a bm. Maintaining O2 sat greater than 90% on 1.5 L/NC . Shortness of breath with exertion and stated it has gotten better already. Making progress towards care plan goals.
[2019-07-25 04:36] VITALS: BP 138/71
[2019-07-25 07:20] VITALS: BP 147/74
[2019-07-25 10:56] VITALS: BP 122/65
[2019-07-25 15:31] VITALS: BP 148/74
--- NOTE | 2019-07-25 16:19 | NUR ---
DISCHARGE PLANNING. HOME WITH HOME HEALTH SERVICES. PATIENT REFERRAL FAXED TO [facility]. CALL PLACED TO [facility], SPOKE WITH STEFANIA, INTAKE. STEFANIA STATES PATIENT IS CURRENT WITH [facility]. STEFANIA TO FACILITATE ONCE DISCHARGE/RESUMPTION OF HH ORDERS RECEIVED. FOLLOWING.
[2019-07-25 16:28] VITALS: BP 148/74
--- NOTE | 2019-07-25 17:02 | NUR ---
MACO reviewed chart and spoke with nursing. Pt had video swallow earlier today. Therapy is recommending services when pt is ready. MACO met with pt at bedside to discuss discharge plan. Pt states he would like to use [facility] again. Pt remains on IV steroids/abx. planner scheduler to fax referral to [facility] . MACO is following to assist as needed with discharge planning.
--- NOTE | 2019-07-25 18:44 | NUR ---
ASSUMED PATIENT CARE AT 0700. A/O X4. SOB WITH EXERTION. TOKERATED ON 1.5L 02. SLOWLY TOWARDS POC GOALS.
[2019-07-25 19:59] VITALS: BP 129/72
--- NOTE | 2019-07-26 03:31 | NUR ---
Patient making progress towards outcome goals. Oxygenatio optimal with 1.5L/NC (patients baseline). Vital signs and rhythm stable.High fall risks, fall precations in place. Uses call light appropriately for needs.
[2019-07-26 05:33] VITALS: BP 170/82
[2019-07-26 08:01] VITALS: BP 177/71
[2019-07-26 11:17] LABS: CALCIUM 8.6 mg/dL (8.5-10.1); POTASSIUM 3.2 mmol/L (3.5-5.1)
--- NOTE | 2019-07-26 15:17 | NUR ---
SW reviewed chart and spoke with nursing and attending physician. Pt is progressing towards goals for discharge. Discharge home with [facility] is anticipated in 1-2 days. Pt on IV steroids. Pt with new diet. SW is following to assist as needed with discharge planning.
[2019-07-26 15:27] VITALS: BP 127/62
--- NOTE | 2019-07-26 16:21 | NUR ---
ASSUMED PATIENT CARE AT 0700. A/0 X4. TITRATED TO RA TOLERATED WELL. DENIES PAIN. SLOWLY TOWARDS POC GOALS.
[2019-07-26 20:30] VITALS: BP 127/70
[2019-07-27 05:10] VITALS: BP 110/66
--- NOTE | 2019-07-27 06:34 | NUR ---
Pt. slept well during the night in the recliner chair. Ambulated to bathroom with assist using walker to void and had bm. Tolerating room air well with no respiratory distress. Making progress towards care plan goals.
[2019-07-27 07:13] VITALS: BP 157/74
[2019-07-27 08:32] VITALS: BP 157/74
[2019-07-27] MEDS ORDERED: BENICAR20 MG PO (12:27)
[2019-07-27] MEDS ORDERED: LEVAQUIN 500 M500 M3 PO (12:28)
--- NOTE | 2019-07-27 14:50 | NUR ---
ASSUMED PATIENT CARE AT 1300. PROGRESSING TOWARDS POC GOALS. DC TO HOME NOW.
--- NOTE | 2019-07-27 16:41 | NUR ---
DISCHARGE NOTE: SW reviewed chart and spoke with nursing and attending physician. Pt is medically stable for discharge home today with HH services. Pt does not need home O2. SW met with pt and at bedside to discuss discharge plan. Both are aware and agreeable with plan. order planner faxed discharge orders/summary to [facility]. Contact info for HH placed in pt's discharge summary. Pt's to provide transportation home. No additional SW needs identified at this time, but is available to assist should needs arise.
--- NOTE | 2019-08-01 12:42 | EKG ---
[facility] [address] [place] [address] ELECTROCARDIOGRAM REPORT Name: BETY XIE Room #: 364-P DIS IN M.R.#: [id number] Admission: 07/23/19 Attend Phys: Ciro Monreal MD Discharge: 07/27/19 Date of : 35 Report #: [id number] THIS REPORT FOR: cc: Ciro Monreal MD, Neal A. 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 Science Teacher: Omar BEEBE : 1935 Requested By: Sachi Coats Order Number: [id number] MD: Sandeep Maguire Measurements Intervals Walling Rate: 65 P: 49 CT: 164 QRS: 60 QRSD: 115 T: 72 QT: 489 QTc: 509 Interpretive Statements Sinus rhythm Nonspecific ST segment abnormality Compared to ECG 02/24/2018 10:30:14 Sinus rhythm has replaced PSVT Electronically Signed On 07-23-2019 17:45:26 INTERACTIVE ACCOUNT MANAGER by Sandeep Maguire [email or web address] <ELECTRONICALLY SIGNED> By: Sandeep aMguire MD, FAC 07/23/19 1745 1558 1558 Sandeep Maguire MD, FAC /EPI
== END 2019-07-27 15:17 | disposition home health service (06) | DRG 291 ==
LOC: MRI → LABMALL 10:04 → 3W 12:23 → ENTRNSPT 07-27 14:53 → EDTRNSPTSTS 07-27 14:55 → 3W 07-27 15:17
PROVIDERS: Nurse Practitioner; Nurse Practitioner Adult Health; ADMIT Family Medicine
DX: I11.0 Hypertensive heart disease with heart failure (principal); J18.9 Pneumonia, unspecified organism; I50.33 Acute on chronic diastolic (congestive) heart failure; E11.9 Type 2 diabetes mellitus without complications; M06.9 Rheumatoid arthritis, unspecified; J45.909 Unspecified asthma, uncomplicated; K21.9 Gastro-esophageal reflux disease without esophagitis; E78.5 Hyperlipidemia, unspecified; F32.9 Major depressive disorder, single episode, unspecified; F41.9 Anxiety disorder, unspecified; F03.90 Unspecified dementia, unspecified severity, without behavioral disturbance, psychotic disturbance, mood disturbance, and anxiety; I48.0 Paroxysmal atrial fibrillation; E78.00 Pure hypercholesterolemia, unspecified; G89.29 Other chronic pain; M54.9 Dorsalgia, unspecified; M48.00 Spinal stenosis, site unspecified; I25.10 Atherosclerotic heart disease of native coronary artery without angina pectoris; E87.5 Hyperkalemia; R13.10 Dysphagia, unspecified; Z88.0 Allergy status to penicillin; Z88.8 Allergy status to other drugs, medicaments and biological substances; Z91.041 Radiographic dye allergy status; Z85.46 Personal history of malignant neoplasm of prostate; Z90.49 Acquired absence of other specified parts of digestive tract; I25.2 Old myocardial infarction; Z98.42 Cataract extraction status, left eye; Z98.41 Cataract extraction status, right eye; Z79.899 Other long term (current) drug therapy
CPT/HCPCS: 10779

== ENCOUNTER → 2019-07-23 | Outpatient (CLI) | payer OTHER | LOC: HYPER 08:05 | DX: E11.621 Type 2 diabetes mellitus with foot ulcer (principal); L97.516 Non-pressure chronic ulcer of other part of right foot with bone involvement without evidence of necrosis; R54 Age-related physical debility; M06.9 Rheumatoid arthritis, unspecified; J45.909 Unspecified asthma, uncomplicated; I25.2 Old myocardial infarction; Z87.891 Personal history of nicotine dependence; Z85.46 Personal history of malignant neoplasm of prostate; Z79.84 Long term (current) use of oral hypoglycemic drugs; Z79.01 Long term (current) use of anticoagulants; Z90.49 Acquired absence of other specified parts of digestive tract ==

== ENCOUNTER → 2019-08-20 | Outpatient (CLI) | payer OTHER ==
[~2019-08-20] MED LIST changes: +BENICAR20 MG PO
== END ==
LOC: HYPER 08:08
DX: E11.621 Type 2 diabetes mellitus with foot ulcer (principal); L97.516 Non-pressure chronic ulcer of other part of right foot with bone involvement without evidence of necrosis; R54 Age-related physical debility; L84 Corns and callosities; M06.9 Rheumatoid arthritis, unspecified; J45.909 Unspecified asthma, uncomplicated; I25.2 Old myocardial infarction; F41.9 Anxiety disorder, unspecified; F32.9 Major depressive disorder, single episode, unspecified; Z87.891 Personal history of nicotine dependence; Z85.46 Personal history of malignant neoplasm of prostate; Z79.84 Long term (current) use of oral hypoglycemic drugs; Z79.01 Long term (current) use of anticoagulants; Z90.49 Acquired absence of other specified parts of digestive tract; Z90.89 Acquired absence of other organs

== ENCOUNTER → 2019-08-29 | Outpatient (CLI) | payer OTHER | LOC: RAD 09:30 → SPEECH 09:30 → RAD 10:00 | DX: R13.12 Dysphagia, oropharyngeal phase (principal); J18.9 Pneumonia, unspecified organism; M47.816 Spondylosis without myelopathy or radiculopathy, lumbar region ==

== ENCOUNTER → 2019-08-30 | Outpatient (CLI) | payer OTHER | LOC: RAD 10:53 | DX: M51.36 Other intervertebral disc degeneration, lumbar region (principal); M47.816 Spondylosis without myelopathy or radiculopathy, lumbar region; I70.0 Atherosclerosis of aorta ==

== ENCOUNTER → 2019-10-15 | Outpatient (CLI) | payer OTHER | LOC: HYPER 09:58 | DX: E11.621 Type 2 diabetes mellitus with foot ulcer (principal); L97.516 Non-pressure chronic ulcer of other part of right foot with bone involvement without evidence of necrosis; L84 Corns and callosities; I25.2 Old myocardial infarction; J45.909 Unspecified asthma, uncomplicated; M06.9 Rheumatoid arthritis, unspecified; F41.9 Anxiety disorder, unspecified; F32.9 Major depressive disorder, single episode, unspecified; Z79.84 Long term (current) use of oral hypoglycemic drugs; Z87.891 Personal history of nicotine dependence; Z90.49 Acquired absence of other specified parts of digestive tract; Z85.46 Personal history of malignant neoplasm of prostate ==

== ENCOUNTER 2019-10-22 01:34 | Emergency (ER) | payer OTHER ==
[~2019-10-22] VITALS: Ht 162.6 cm; Wt 74.8 kg
[2019-10-22] MEDS ORDERED: LEVOTHYROXINE125 MCG PO (01:51)
[2019-10-22] MEDS ORDERED: TOPROL XL25 MG PO (01:54)
[2019-10-22] MEDS ORDERED: NEURONTIN 300300 M1 PO (01:55)
[2019-10-22] MEDS ORDERED: DOXYCYCLINE HY100 M3 PO (01:55)
[2019-10-22] MEDS ORDERED: NORCO 5-325 TA1 EAC1 PO (01:56)
[2019-10-22] MEDS ORDERED: PREDNISONE 5 MG5 M1 PO (02:28)
[2019-10-22] MEDS ORDERED: KEFLEX500 M1 PO (02:28)
[2019-10-22 02:45] VITALS: BP 166/74
== END 2019-10-22 02:45 | disposition home or self-care (01) ==
LOC: ER 01:34
DX: L50.9 Urticaria, unspecified (principal); E11.9 Type 2 diabetes mellitus without complications; I10 Essential (primary) hypertension; E78.5 Hyperlipidemia, unspecified; I48.91 Unspecified atrial fibrillation; M06.9 Rheumatoid arthritis, unspecified; K21.9 Gastro-esophageal reflux disease without esophagitis; J45.909 Unspecified asthma, uncomplicated; Z79.899 Other long term (current) drug therapy; Z88.0 Allergy status to penicillin; Z88.8 Allergy status to other drugs, medicaments and biological substances; Z91.041 Radiographic dye allergy status; Z90.49 Acquired absence of other specified parts of digestive tract; Z90.89 Acquired absence of other organs

== ENCOUNTER → 2019-10-29 | Outpatient (CLI) | payer OTHER ==
[~2019-10-29] MED LIST changes: +DOXYCYCLINE HY100 M3 PO; +LEVOTHYROXINE125 MCG PO; +NORCO 5-325 TA1 EAC1 PO
== END ==
LOC: HYPER 10:00
DX: E11.621 Type 2 diabetes mellitus with foot ulcer (principal); L97.516 Non-pressure chronic ulcer of other part of right foot with bone involvement without evidence of necrosis; L84 Corns and callosities; R54 Age-related physical debility; M06.9 Rheumatoid arthritis, unspecified; J45.909 Unspecified asthma, uncomplicated; I25.2 Old myocardial infarction; F41.9 Anxiety disorder, unspecified; F32.9 Major depressive disorder, single episode, unspecified; Z85.46 Personal history of malignant neoplasm of prostate; Z87.891 Personal history of nicotine dependence; Z79.01 Long term (current) use of anticoagulants; Z79.84 Long term (current) use of oral hypoglycemic drugs; Z90.49 Acquired absence of other specified parts of digestive tract

== ENCOUNTER → 2019-11-07 | Outpatient (CLI) | payer OTHER | LOC: SJCVCIMAG 09:23 | DX: I70.203 Unspecified atherosclerosis of native arteries of extremities, bilateral legs (principal); E11.9 Type 2 diabetes mellitus without complications; I25.2 Old myocardial infarction; K21.9 Gastro-esophageal reflux disease without esophagitis; I25.10 Atherosclerotic heart disease of native coronary artery without angina pectoris; I10 Essential (primary) hypertension; Z79.899 Other long term (current) drug therapy ==

== ENCOUNTER → 2019-11-14 | Outpatient (CLI) | payer OTHER ==
[~2019-11-14] MED LIST changes: +KLOR-CON M2020 MEQ PO; +TOPROL XL50 MG PO
== END ==
LOC: LAB 08:00
PROVIDERS: ATTEND Family Medicine
DX: R05 Cough (principal); R06.02 Shortness of breath; Z20.828 Contact with and (suspected) exposure to other viral communicable diseases; R50.9 Fever, unspecified

== ENCOUNTER 2019-11-16 09:12 | Inpatient (IN) | payer OTHER ==
[~2019-11-16] VITALS: Ht 162.6 cm; Wt 80.3 kg
[~2019-11-16 09:12] MED LIST changes: -KLOR-CON M2020 MEQ PO
[2019-11-16 09:33] VITALS: BP 143/72
[2019-11-16 10:39] LABS: ABSOLUTE NEUTROPHILS 6.8 thou/uL (1.4-8.2); BASOPHILS 0.3 % (0.0-2.0); EOSINOPHILS 0.6 % (0.0-3.0); HEMOGLOBIN 13.6 gm/dL (14.0-18.0); LYMPHOCYTES 4.2 % (24.0-44.0); MCH 30.6 pg (26.0-34.0); MCHC 33.2 g/dL (28.0-37.0); MCV 92.3 fL (80.0-100.0); MONOCYTES 6.6 % (1.0-8.0); POLYS 88.3 % (36.0-66.0); RBC 4.44 mil/uL (4.50-6.00); RDW 16.8 % (10.5-14.5); WBC 7.7 thou/uL (4.0-11.0)
[2019-11-16 10:51] LABS: CALCIUM 8.4 mg/dL (8.5-10.1)
[2019-11-16 11:09] LABS: BE(vivo) 2.9 mmol/L (-2 to +3); HCO3 27.9 mmol/L (22.0-26.0); PCO2 44.1 mmHg (35.0-45.0); PO2 69.4 mmHg (80.0-100.0); pH 7.419 (7.360-7.450); sO2 94.1 % (92.0-98.0)
[2019-11-16 11:47] VITALS: BP 121/56
[2019-11-16 12:26] VITALS: BP 148/70
[2019-11-16 12:48] LABS: PLATELET COUNT 79 thou/uL (150-400); PLATELET ESTIMATE SLIGHTLY DECREASED
[2019-11-16] MEDS ORDERED: BENICAR20 MG PO (13:22)
[2019-11-16] MEDS ORDERED: KLOR-CON M2020 MEQ PO (13:23)
--- NOTE | 2019-11-16 18:45 | NUR ---
PATIENT NOW SLEEPING QUIETLY. TOO SLEEPY TO EAT DINNER. STATES HE IS NOT HUNGRY.RESPIRAITONS ARE LABORED WHEN HE MOVES BUT REGULAR WHEN HE IS DEEP ASLEEP. HE STATES HE IS NOT SHORT OF BREATH WHEN HE IS SITTING UP RIGHT. WILL CONT WITH PLAN OF CARE.
[2019-11-16 20:25] VITALS: BP 94/50
[2019-11-16 23:25] VITALS: BP 115/62
--- NOTE | 2019-11-17 00:54 | NUR ---
PT ALERT X4 BUT POOR HISTORIAN. PT STATES HE HAS TROUBLE REMEMBERING WORDS AT TIMES AND IS FORGETFUL. TEMP 99. RESPIRATIONS UNLABORED WHILE RESTING IN BED. SATS WNL ON 4LNC. RHALES NOTED RLL. NONPRODUCTIVE COUGH NOTED. NOTIFIED DR FLTECHER BP 94/50 EARLIER THIS EVENING AND PT REFUSING TO EAT DINNER OR DRINK FLUIDS. NS AT 100 ML/HR STARTED ORDERED. REPORTED LACTIC ACID RESULTS. PT AGREED TO GO BACK TO BED. TRANSFERRED WITH 2 PEOPLE, GAIT BELT AND WALKER. PT IS WEAK AND UNSTEADY. INSTRUCTED PT ON FALL PRECAUIONS. BED ALARM ON. NSR ON HT MONITOR 70'S. WILL CONTINUE TO MONITOR PT FOR CHANGES.
[2019-11-17 03:30] VITALS: BP 122/66
[2019-11-17 05:11] LABS: POTASSIUM 4.4 mmol/L (3.5-5.1)
--- NOTE | 2019-11-17 06:14 | NUR ---
PT C/O SOA THIS AM AROUND 0330. AUDIBLE COARSENESS NOTED. SATS 97-98%. RT TX GIVEN. NOTIFIED SRIRAM SCHILLING RECRUITER SPECIALIST. IV FLUIDS DC'C ORDERED. XRAY ORDERED FOR AM. BNP ADDED FOR AM LABS. LABS STILL PENDING. SMALL AMT BLOOD TINGED SPUTUM NOTED THIS AM WHEN PT ATTEMPTED TO CLEAR COUGH. NO OTHER EPISODES NOTED OF BLEEDING. WILL NOTIFY DAYSHIFT TO NOTIFY PRIMARY DR UPON ROUNDS. PT STATED HE HAS COUGJED UP BLOODY SPUTUM FOR THE LAST 3-4 DAYS.
--- NOTE | 2019-11-17 06:38 | NUR ---
NOTIFIED SRIRAM SCHILLING NP OF BNP RESULTS AND BUN CR THIS AM, CXRAY STILL PENDING. NOTIFIED HER HAT PT COUGHED UP BLOOD TINGED SPUTUM. REQUESTED FOR ACCUCHECKS TO BE ORDERED SINCE WE HAVE BEEN CHECKING. SHE STATED SHE WOULD ASK ONCOMING TO ORDER OR NOT AND ADDRESS ACTIVITY. FLUIDS STILL OFF. PT STILL SOUNDS COARSE BUT UNLABORED PRESENTLY.
[2019-11-17 06:54] LABS: HEMATOCRIT 36.1 % (42.0-52.0); HEMOGLOBIN 11.7 gm/dL (14.0-18.0); MCH 30.1 pg (26.0-34.0); MCHC 32.4 g/dL (28.0-37.0); RBC 3.88 mil/uL (4.50-6.00); RDW 17.1 % (10.5-14.5); WBC 4.8 thou/uL (4.0-11.0)
[2019-11-17 08:53] VITALS: BP 127/64
--- NOTE | 2019-11-17 09:33 | EKG ---
[facility] [place] [address] ELECTROCARDIOGRAM REPORT Name: BETY XIE Room #: 360-P ADM IN M.R.#: [id number] Admission: 11/16/19 Attend Phys: Ciro Monreal MD Discharge: Date of : 35 Report #: [id number] THIS REPORT FOR: cc: Ciro Monreal MD, Neal A. MD Couchonnal, Luis F. 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: Angela [place] : 1935 Requested By: Ciro Monreal Order Number: [id number] MD: Simba Eason Measurements Intervals [place] Rate: 74 P: 14 AR: 137 QRS: 45 QRSD: 109 T: 62 QT: 516 QTc: 573 Interpretive Statements Sinus rhythm Prolonged QT interval Compared to ECG 07/23/2019 15:58:23 Prolonged QT interval now present ST (T wave) deviation no longer present Electronically Signed On 11-17-2019 9:31:23 CDT by Simba Eason [email or web address] <ELECTRONICALLY SIGNED> By: Simba aEson MD 11/17/19 0931 [id number] Simba Eason MD /EPI
[2019-11-17 11:37] VITALS: BP 126/74
--- NOTE | 2019-11-17 14:30 | NUR ---
PT TO REMAIN IN ENHANCED PRECAUTIONS AND HAVE ANOTHER COVID SWAB. TO MONITOR FOR FEVER OVERNIGHT AND MAY DC ENHANCED PRECAUTIONS TOMORROW IF AFEBRILE AND COVID RESWAB IS NEGATIVE PER DR CLEMENTE VALVERDE.
--- NOTE | 2019-11-17 15:00 | NUR ---
PT REQUESTED TO GET TO CHAIR...HE WAS A MAX TRANSFER OF 2 STAFF WITH GAIT/WALKER/O2 WITH A FEW PIVOT/SHUFFLE STEPS TO CHAIR...REPORTS EASIER BREATHING WHEN IN CHAIR...
[2019-11-17 17:26] VITALS: BP 142/72
[2019-11-17 19:37] VITALS: BP 121/64
--- NOTE | 2019-11-17 20:08 | NUR ---
PT ALERT AND ORIENTED X4. FORGETFUL AT TIMES. HAS BEEN APPROPRIATE SO FAR TONIGHT. HRR. LUNGS CLEAR WITH DIMINSHED BASES PRESENTLY. PT DENIED BLOODY SPUTUM TODAY. NOTIFIED SRIRAM SCHILLING NP OF PLT COUNT TODAY DROPPED FROM 73 FROM 79K YESTERDAY. ALSO NOTIFIED HER OF PT COUGHING UP BLOODY SPUTUM LAST NIGHT BUT NONE ON DAY SHIFT. SHE STATED OKAY TO GIVE ELIQUIS TONIGHT LONG PLT CT GREATER THAN 50K. ACCUCHECKS CLARIFIED TO Q AM. PT SITTING UP IN CHAIR PRESENTLY NO SOA.SAT 97%.
[2019-11-17 22:59] VITALS: BP 145/74
[2019-11-18 03:17] LABS: BE(vivo) 0.8 mmol/L (-2 to +3); HCO3 25.7 mmol/L (22.0-26.0); PCO2 42.1 mmHg (35.0-45.0); PO2 81.1 mmHg (80.0-100.0); pH 7.403 (7.360-7.450)
[2019-11-18 04:24] VITALS: BP 134/73
--- NOTE | 2019-11-18 05:54 | NUR ---
PT IS PROGRESSING SLOWLY TOWARDS D/C GOALS. BP BETTER TONIGHT. LOW GRADE TEMP NOTED X1 TONIGHT. REPIRATIONS LABORED WITH EXERTION GETTING TO DANGLE AT BS OR GETTING TO AND FROM CHAIR. PT C/O ITCHING. NOTIFIED SRIRAM SCHILLING NP. BENADRYL 25 MG X1 GIVEN. LOTION APPLIED TO BACK AND ARMS. NO RASH NOTED BUT AREAS NOTED WHERE PT HAD SCRATCHED ARMS. INSTRUCED PT NOT TO SCRATCH HARD SINCE HE HAS FRAGILE SKIN AND WAS LEAVING RED CORONADO. LUNGS SOUND CLEARER TONIGHT THAN LAST NIGHT. WILL CONTINUE TO MONITOR PT FOR S/S DISTRESS.
[2019-11-18 08:00] VITALS: BP 139/66
[2019-11-18 08:23] LABS: HEMATOCRIT 36.5 % (42.0-52.0); HEMOGLOBIN 12.1 gm/dL (14.0-18.0); MCH 30.7 pg (26.0-34.0); MCHC 33.1 g/dL (28.0-37.0); MCV 92.8 fL (80.0-100.0); RBC 3.94 mil/uL (4.50-6.00); RDW 16.8 % (10.5-14.5); WBC 6.4 thou/uL (4.0-11.0)
[2019-11-18 08:31] LABS: CALCIUM 8.5 mg/dL (8.5-10.1); MAGNESIUM 2.5 mg/dL (1.8-2.4); POTASSIUM 3.7 mmol/L (3.5-5.1)
[2019-11-18 11:49] VITALS: BP 149/71
--- NOTE | 2019-11-18 15:17 | NUR ---
PT IS PROGRESSING SLOWLY...HE WAS WEANED TO 1 L FROM 4L THIS AM BUT IMMEDIATELY BEGAN DESATTING AND WAS RETURNED TO 4L WITH SATS 94%...WILL MONITOR
--- NOTE | 2019-11-18 15:31 | NUR ---
PT MAY BE REMOVED FROM ENHANCED PRECAUTIONS PER DR CLEMENTE VALVERDE SINCE AFEBRILE AND COVID SWAB WAS NEGATIVE. WILL NOTIFY DR CLEMENTE VALVERDE.
[2019-11-18 17:08] VITALS: BP 156/74
[2019-11-18 19:43] VITALS: BP 131/64
[2019-11-18 22:18] VITALS: BP 160/62
--- NOTE | 2019-11-18 22:45 | NUR ---
PT PROGRESSING TOWARDS D/C GOALS. LUNGS ARE CLEARER TODAY. FEW FAINT CRACKLES NOTED RLL. UNLABORED IN 4LNC. HRR. DENIED PAIN. NO S/S DISTRESS. COVID NEGATIVE X2. PT TRANSFERRED TO [facility] WITH ALL HIS BELONGINGS.
--- NOTE | 2019-11-19 04:00 | NUR ---
PT WAS TRANSFERRED FROM . [facility]. CALLS APPRPRIATELY FOR HELP. FALL PRECAUTIONS IN PLACE. C/O ITHICNG UPON TRANSFER. PT THINKS THE HIVES ARE COMING FROM ALLERGY TO ZINC. CALLED [facility] AND STOPPED ZINC, IV BENADRYL AND HYDROCORTISONE CREAM ORDERED. REPORTS RELIEVE WITH CREAM AND IV MED. NO S/S ACUTE DISTRESS NOTED OR REPORTED AT THIS TIME. WILL CONT TO MONITOR FOR ANY CHANGES IN CONDITION.
[2019-11-19 05:06] VITALS: BP 136/60
[2019-11-19 07:00] VITALS: BP 147/65
--- NOTE | 2019-11-19 11:13 | NUR ---
RD consult received for poor appetite. Admit with SOA, pneumonia. Pt reports just recent decreased appetite but ate great this am and enjoys the food. States UBW 160-165 lb, although current wts much higher 180's. Hx CHF. Pt able to order own meals. BG elevated with hx dm and also aggravated with steroids. On carb controlled diet. Low nutrition risk
[2019-11-19 15:32] VITALS: BP 142/62
[2019-11-19 19:11] VITALS: BP 150/59
--- NOTE | 2019-11-19 20:10 | NUR ---
Assumed pt care this am, stayed on the recliner for most ofthe day, call out appropriately. Diet and medications are tolerated well. POC followed with no signs or verbalizations of distress noted. Endorsed o the erin olivas.
[2019-11-20 03:52] VITALS: BP 161/67
--- NOTE | 2019-11-20 07:17 | NUR ---
ASSUMED PT CARE AROUND 1930. AXOX3. CALLS APPROPRIATELY. DENIES ITCHING TONIGHT. NO S/S ACUTE DISTRESS NOTED OR REPORTED AT THIS TIME. CARE TRANSFERRED TO INCOMING RN AT THIS TIME.
[2019-11-20 07:19] VITALS: BP 161/61
[2019-11-20 11:37] VITALS: BP 130/57
--- NOTE | 2019-11-20 13:21 | NUR ---
PT ADMITTED RELATED TO SOB, COUGHING BLOOD X3 DAYS. CM REVIEWED CHART AND SPOKE WITH CARE TEAM. CM CALLED AND SPOKE WITH PT. HE APPEARED TO BE A&O X4. CM ROLE INTRODUCED. PT INDICATED HE LIVES IN A HOUSE WITH IS SPOUSE WITH 1 STEP TO ENTER AND NONE HE USES INSIDE. PT INDICATED HE HAS A FWW, 4WW, AND NEBULIZER FOR HOME USE. PT INDICATED HE HAD USED [facility] IN THE PAST AND WOULD LIKE TO USE THEM AGAIN UPON DC IF INDICATED. PT ON 3L OF O2 AT THIS TIME. ANTICIPATE POSSIBLE DC HOME TOMORROW TUESDAY. PHYSICIAN INDICATED HAT SAT EXERCISE WOULD BE ORDERED AND COMPLETED TO SEE IF PT NEEDS HOME O2 UPON DC. CM FOLLOWING REGARDING DC PLANNING.
[2019-11-20 14:09] VITALS: BP 130/57
--- NOTE | 2019-11-20 14:10 | NUR ---
PT ON SERVICE WITH [facility] FAXED REFERRAL FOR RESUMPTION OF CARE SPOKE WITH STEFANIA IN INTAKE SHE RECEIVED REFERRAL AND WILL RESUME HH AT DISCHARGE. POSS. ROSAS TOMORROW.
[2019-11-20 16:41] VITALS: BP 148/75
--- NOTE | 2019-11-20 19:09 | NUR ---
Assumed pt care this am VS stable for this shift. NO signs or verbalizations of distress noted. Diet and medication are well tolerated. No itching has been noted and progressing well towards goals. POC followed, plan is for pt to dc tomorrow as per Dr. Monreal.
[2019-11-20 19:38] VITALS: BP 155/80
[2019-11-21 03:42] VITALS: BP 145/75
--- NOTE | 2019-11-21 05:53 | NUR ---
ASSUMED PT CARE AROUND 191. AXOX3. CALLS FOR HELP. VSS. NO S/S ACUTE DISTRESS NOTED OR REPORTED AT THIS TIME. WILL CONT TO MONITOR FOR ANY CHANGES IN CONDITION.
[2019-11-21 07:05] VITALS: BP 155/79
[2019-11-21] MEDS ORDERED: LEVAQUIN 500 M500 M3 PO (07:49)
[2019-11-21 09:21] VITALS: BP 130/57
--- NOTE | 2019-11-21 11:23 | NUR ---
PT AOX3, VSS, NO C/O PAIN. PT IS UP IN RECLINER, TAKES MEDS WHOLE, IV PATENT WITH ANTIBIOTIC THERAPY. PT WORKING WITH PT/OT. PT WILL DISCHARGE HOME TODAY. PT CALLS APPROPRIATELY, CALL LIGHT IN REACH. WILL CONTINUE MONITOR.
[2019-11-21 14:56] VITALS: BP 137/70
[2019-11-21 16:10] VITALS: BP 130/57
--- NOTE | 2019-11-21 16:36 | NUR ---
PT QUALIFIED FOR HOME O2 2L WITH ACTIVITY ORDER SENT TO [facility] PT DIDN'T HAVE PREFERECNE FOR PROVIDERS. ORDERS SENT TO [facility] [place]. PT ALL SET TO DC HOME THIS DAY. [facility] TO DELIVER PORTABLE TANK FOR PT TO TAKE HOME WITH HIM. UNIT AWARE. NO OTHER CM INTERVENTION INDICATED. CASE CLOSED.
== END 2019-11-21 18:19 | disposition home health service (06) | DRG 291 ==
LOC: ER 09:12 → 3W 11:29 → 4W 11:29 → EROBS 11:29 → 3W 12:13 → 4W 11-18 22:11
PROVIDERS: Emergency Medicine; Internal Medicine; ADMIT Family Medicine
DX: I11.0 Hypertensive heart disease with heart failure (principal); J18.9 Pneumonia, unspecified organism; J96.01 Acute respiratory failure with hypoxia; J44.1 Chronic obstructive pulmonary disease with (acute) exacerbation; J44.0 Chronic obstructive pulmonary disease with (acute) lower respiratory infection; I50.23 Acute on chronic systolic (congestive) heart failure; I48.0 Paroxysmal atrial fibrillation; Z20.828 Contact with and (suspected) exposure to other viral communicable diseases; E11.9 Type 2 diabetes mellitus without complications; M06.9 Rheumatoid arthritis, unspecified; F03.90 Unspecified dementia, unspecified severity, without behavioral disturbance, psychotic disturbance, mood disturbance, and anxiety; K21.9 Gastro-esophageal reflux disease without esophagitis; E78.5 Hyperlipidemia, unspecified; F32.9 Major depressive disorder, single episode, unspecified; F41.9 Anxiety disorder, unspecified; I25.10 Atherosclerotic heart disease of native coronary artery without angina pectoris; M51.36 Other intervertebral disc degeneration, lumbar region; G89.29 Other chronic pain; M54.5 Low back pain; M48.00 Spinal stenosis, site unspecified; Z85.46 Personal history of malignant neoplasm of prostate; Z79.01 Long term (current) use of anticoagulants; Z90.49 Acquired absence of other specified parts of digestive tract; I25.2 Old myocardial infarction; Z98.42 Cataract extraction status, left eye; Z98.41 Cataract extraction status, right eye; Z88.0 Allergy status to penicillin; Z88.8 Allergy status to other drugs, medicaments and biological substances; Z91.041 Radiographic dye allergy status; Z87.891 Personal history of nicotine dependence
CPT/HCPCS: 10045; 10879

== ENCOUNTER → 2019-12-18 | Outpatient (CLI) | payer OTHER ==
[~2019-12-18] MED LIST changes: +KLOR-CON M2020 MEQ PO
== END ==
LOC: SJCVC 12:50
PROVIDERS: ATTEND Nuclear Medicine Nuclear Cardiology
DX: I73.9 Peripheral vascular disease, unspecified (principal); E78.00 Pure hypercholesterolemia, unspecified; E11.9 Type 2 diabetes mellitus without complications; I48.0 Paroxysmal atrial fibrillation; I10 Essential (primary) hypertension; I87.2 Venous insufficiency (chronic) (peripheral); K21.9 Gastro-esophageal reflux disease without esophagitis; G47.33 Obstructive sleep apnea (adult) (pediatric); Z90.49 Acquired absence of other specified parts of digestive tract; Z79.899 Other long term (current) drug therapy

== ENCOUNTER → 2020-01-07 | Outpatient (CLI) | payer OTHER | LOC: HYPER 09:10 | PROVIDERS: ATTEND Emergency Medicine | DX: E11.621 Type 2 diabetes mellitus with foot ulcer (principal); L97.511 Non-pressure chronic ulcer of other part of right foot limited to breakdown of skin; R54 Age-related physical debility; L84 Corns and callosities; R21 Rash and other nonspecific skin eruption; M06.9 Rheumatoid arthritis, unspecified; J45.909 Unspecified asthma, uncomplicated; I25.2 Old myocardial infarction; Z79.01 Long term (current) use of anticoagulants; Z85.46 Personal history of malignant neoplasm of prostate; Z79.84 Long term (current) use of oral hypoglycemic drugs; Z90.49 Acquired absence of other specified parts of digestive tract; Z90.89 Acquired absence of other organs ==

== ENCOUNTER → 2020-01-15 | Outpatient (CLI) | payer OTHER | LOC: SJCVC 16:21 | PROVIDERS: ATTEND Internal Medicine Cardiovascular Disease | DX: R94.31 Abnormal electrocardiogram [ECG] [EKG] (principal); I25.10 Atherosclerotic heart disease of native coronary artery without angina pectoris; I11.0 Hypertensive heart disease with heart failure; I50.9 Heart failure, unspecified; I48.0 Paroxysmal atrial fibrillation; E78.00 Pure hypercholesterolemia, unspecified; D68.59 Other primary thrombophilia; I65.23 Occlusion and stenosis of bilateral carotid arteries; I82.409 Acute embolism and thrombosis of unspecified deep veins of unspecified lower extremity; M19.90 Unspecified osteoarthritis, unspecified site; J45.909 Unspecified asthma, uncomplicated; K21.9 Gastro-esophageal reflux disease without esophagitis; I25.2 Old myocardial infarction; Z79.899 Other long term (current) drug therapy ==

== ENCOUNTER → 2020-01-21 | Outpatient (CLI) | payer OTHER | LOC: HYPER 09:16 | PROVIDERS: ATTEND Emergency Medicine Emergency Medical Services | DX: E11.621 Type 2 diabetes mellitus with foot ulcer (principal); L97.511 Non-pressure chronic ulcer of other part of right foot limited to breakdown of skin; R54 Age-related physical debility; L84 Corns and callosities; M06.9 Rheumatoid arthritis, unspecified; J45.909 Unspecified asthma, uncomplicated; I25.2 Old myocardial infarction; F41.9 Anxiety disorder, unspecified; F32.9 Major depressive disorder, single episode, unspecified; Z79.84 Long term (current) use of oral hypoglycemic drugs; Z87.891 Personal history of nicotine dependence; Z85.46 Personal history of malignant neoplasm of prostate; Z79.01 Long term (current) use of anticoagulants; Z90.49 Acquired absence of other specified parts of digestive tract; Z90.89 Acquired absence of other organs ==

== ENCOUNTER → 2020-05-21 | Outpatient (CLI) | payer OTHER | LOC: SJCVCIMAG 14:36 | PROVIDERS: ATTEND Nuclear Medicine Nuclear Cardiology | DX: I70.201 Unspecified atherosclerosis of native arteries of extremities, right leg (principal); I25.10 Atherosclerotic heart disease of native coronary artery without angina pectoris; I48.0 Paroxysmal atrial fibrillation; I11.0 Hypertensive heart disease with heart failure; I50.9 Heart failure, unspecified; I82.509 Chronic embolism and thrombosis of unspecified deep veins of unspecified lower extremity; I87.2 Venous insufficiency (chronic) (peripheral); I77.9 Disorder of arteries and arterioles, unspecified; E11.9 Type 2 diabetes mellitus without complications; E78.00 Pure hypercholesterolemia, unspecified; I25.2 Old myocardial infarction; Z79.899 Other long term (current) drug therapy ==

== ENCOUNTER → 2020-08-18 | Outpatient (CLI) | payer OTHER | LOC: SJCVC 14:28 | PROVIDERS: ATTEND Internal Medicine Cardiovascular Disease | DX: R94.31 Abnormal electrocardiogram [ECG] [EKG] (principal); I44.7 Left bundle-branch block, unspecified; I25.10 Atherosclerotic heart disease of native coronary artery without angina pectoris; I73.9 Peripheral vascular disease, unspecified; I77.9 Disorder of arteries and arterioles, unspecified; I48.0 Paroxysmal atrial fibrillation; E11.9 Type 2 diabetes mellitus without complications; I82.409 Acute embolism and thrombosis of unspecified deep veins of unspecified lower extremity; D68.59 Other primary thrombophilia; M19.90 Unspecified osteoarthritis, unspecified site; J45.909 Unspecified asthma, uncomplicated; I11.0 Hypertensive heart disease with heart failure; I50.9 Heart failure, unspecified; K21.9 Gastro-esophageal reflux disease without esophagitis; I25.2 Old myocardial infarction; G47.33 Obstructive sleep apnea (adult) (pediatric); Z90.49 Acquired absence of other specified parts of digestive tract; Z98.890 Other specified postprocedural states; Z88.8 Allergy status to other drugs, medicaments and biological substances; Z79.899 Other long term (current) drug therapy; Z86.711 Personal history of pulmonary embolism; Z87.891 Personal history of nicotine dependence ==

== ENCOUNTER → 2020-09-09 | Outpatient (CLI) | payer OTHER | LOC: RAD 10:31 | PROVIDERS: ATTEND Family Medicine | DX: J90 Pleural effusion, not elsewhere classified (principal); J98.11 Atelectasis; I51.7 Cardiomegaly; R91.8 Other nonspecific abnormal finding of lung field ==

== ENCOUNTER 2020-11-17 13:23 | Inpatient (IN) | payer OTHER ==
[~2020-11-17] VITALS: Ht 152.4 cm; Wt 71.7 kg
[2020-11-17] VITALS (11 sets, daily range): BP systolic 113–147; BP diastolic 52–90
[2020-11-17 13:40] LABS: ABSOLUTE NEUTROPHILS 14.1 thou/uL (1.4-8.2); BASOPHILS 0.2 % (0.0-2.0); HEMATOCRIT 38.6 % (42.0-52.0); HEMOGLOBIN 12.1 gm/dL (14.0-18.0); LYMPHOCYTES 9.9 % (24.0-44.0); MCH 29.6 pg (26.0-34.0); MCHC 31.5 g/dL (28.0-37.0); MONOCYTES 5.5 % (1.0-8.0); PLATELET COUNT 108 thou/uL (150-400); POLYS 84.4 % (36.0-66.0); RDW 18.8 % (10.5-14.5); WBC 16.7 thou/uL (4.0-11.0)
[2020-11-17 13:48] LABS: ANION GAP 8 mmol/L (7-16); BUN 25 mg/dL (7-18); CALCIUM 8.9 mg/dL (8.5-10.1); CHLORIDE 104 mmol/L (98-107); CO2 29 mmol/L (21-32); CREATININE 1.3 mg/dL (0.7-1.3); GLUCOSE 154 mg/dL (74-106); POTASSIUM 4.4 mmol/L (3.5-5.1); SODIUM 141 mmol/L (136-145)
[2020-11-17 13:58] LABS: SGOT 31 U/L (15-37); SGPT 44 U/L (16-63); TOTAL BILIRUBIN 1.1 mg/dL (0.2-1.0); TOTAL PROTEIN 6.3 g/dL (6.4-8.2); TROPONIN-I <0.06 ng/mL (<0.06)
[2020-11-17 14:10] LABS: BE(vivo) -1.9 mmol/L (-2 to +3); HCO3 22.8 mmol/L (22.0-26.0); PCO2 38.7 mmHg (35.0-45.0); PO2 77.4 mmHg (80.0-100.0); pH 7.388 (7.360-7.450); sO2 95.4 % (92.0-98.0)
--- NOTE | 2020-11-17 14:30 | NUR ---
PT HAS NOTED BLE DISCOLORATION D/T POOR CIRCULATION. PT STATED TO USE A WALKER AT HOME BUT HAS BEEN INCREASINGLY MORE WEAK PT SPOUSE AND HAS BEEN HAVING TO USE WHEELCHAIR. PT HAS MILD PITTING EDEMA TO BOTH FEET. PEDAL PULSE PRESENT IN BOTH FEET, CAP REFILL IS LESS THAN 3 SECONDS AT THIS TIME. PT SPOUSE NOTES THAT PT DOES TAKE LASIX DAILY
[2020-11-17 16:11] LABS: URINE BILIRUBIN NEGATIVE (Negative); URINE BLOOD NEGATIVE (Negative); URINE CLARITY CLEAR; URINE COLOR YELLOW; URINE GLUCOSE-RANDOM* NEGATIVE (Negative); URINE KETONES TRACE (Negative); URINE LEUKOCYTES-REFLEX NEGATIVE (Negative); URINE NITRITE-REFLEX NEGATIVE (Negative); URINE PROTEIN (DIPSTICK) 2+ (Negative); URINE SPECIFIC GRAVITY >= 1.030 (1.005-1.035); URINE UROBILINOGEN 0.2 E.U./dl (0.2-1.0)
[2020-11-17 16:20] LABS: BACTERIA-REFLEX None Seen /HPF (None Seen); CRYSTALS None Seen /LPF (None Seen); SQUAMOUS None Seen /LPF (0-3); URINE RBC None Seen /HPF (NONE SEEN); URINE WBC-REFLEX None Seen /HPF (0-5)
--- NOTE | 2020-11-17 18:13 | NUR ---
REPORT GIVEN TO ICU AT THIS TIME, DENIES FURTHER QUESTIONS. PT AND SPOUSE DENY FURTHER QUESTIONS AT THIS TIME. PT STABLE FOR TRANSPORT TO ICU WITH RN AND OXYGEN
[2020-11-18] VITALS (32 sets, daily range): BP systolic 101–179; BP diastolic 48–128
--- NOTE | 2020-11-18 01:42 | NUR ---
PT ARRIVED ON THE UNIT FROM ER @ 1840 PER NURSING REPORT. PT ALERT AND ORIENTED TO SELF,PLACE,SITUATION ON INITIAL ASSESSMENT. PT STATES HE WEARS CPAP AT HS. ADMISSION ASSESSMENTS DOCUMENTED, PT UNABLE TO REMEMBER HIS HOME MEDS, PROVIDED MED LIST OVER THE PHONE. ADMISSION ORDERS ENTERED PER DR FLETCHER. PT NOW RESTING WITH CPAP ON, DENIES CONCERNS. WILL MONITOR.
[2020-11-18 05:06] LABS: ALBUMIN 2.5 g/dL (3.4-5.0); CALCIUM 8.2 mg/dL (8.5-10.1); CREATININE 0.9 mg/dL (0.7-1.3); POTASSIUM 4.4 mmol/L (3.5-5.1); TOTAL BILIRUBIN 0.6 mg/dL (0.2-1.0); TOTAL PROTEIN 5.7 g/dL (6.4-8.2)
[2020-11-18 05:52] LABS: HEMATOCRIT 33.7 % (42.0-52.0); HEMOGLOBIN 10.7 gm/dL (14.0-18.0); MCH 29.9 pg (26.0-34.0); MCHC 31.8 g/dL (28.0-37.0); MCV 93.8 fL (80.0-100.0); RBC 3.59 mil/uL (4.50-6.00); RDW 17.8 % (10.5-14.5); WBC 7.3 thou/uL (4.0-11.0)
--- NOTE | 2020-11-18 07:13 | EKG ---
[address] [address] ELECTROCARDIOGRAM REPORT Name: ROJASCATHIE Room #: 239-P ADM IN M.R.#: [id number] Admission: 11/17/20 Attend Phys: Ciro Monreal MD Discharge: Date of : 35 Report #: [id number] 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: SHANNAN : 1935 Requested By: Papito Duran Order Number: [id number] MD: Mike Contreras Measurements Intervals [place] Rate: 78 P: 22 NE: 171 QRS: 43 QRSD: 116 T: 60 QT: 460 QTc: 525 Interpretive Statements Sinus rhythm Nonspecific intraventricular conduction delay Borderline low voltage, extremity leads Baseline wander in lead(s) V3 Compared to ECG 11/16/2019 15:44:54 Intraventricular conduction delay now present Prolonged QT interval no longer present Electronically Signed On 11-18-2020 7:13:32 CDT by Mike Contreras [email or web address] <ELECTRONICALLY SIGNED> By: Mike Contreras MD, FACC 11/18/20 0713 1356 [id number] Mike Contreras MD, [facility] /EPI
--- NOTE | 2020-11-18 11:05 | NUR ---
chart review, unable to visit with kale rt resting. o2 per nc, iv abx and iv lasix. noted he lives at home with his . had fall getting out of bed prior to coming to hospital. has home cpap, and o2. had [facility] in past. pcp dr gonzalez. cm spoke with juanis newby via phone call, intro to cm, and dcp. unable to visit long rt she was out delivering meals on wheels. will cont following as needed for dc needs.
[2020-11-19] VITALS (10 sets, daily range): BP systolic 117–170; BP diastolic 61–72
--- NOTE | 2020-11-19 05:08 | NUR ---
VANCO TROUGH DRAWN AT 0336 FOR 0400 VANCO, STILL NOT RESULTED AT THIS TIME
--- NOTE | 2020-11-19 05:14 | NUR ---
PT PLEASANT, MILDLY CONFUSED, REQUIRING FREQUENT ORIENTATION. HEAVILY INCONTINENT OF URINE. X1 BM ON BEDPAN. DID NOT TOLERATING ASSISTING GETTING ONTO BEDPAN, BECAME VERY SHORT OF BREATH AND DESATURATED TO 70'S. WILL ASK PHYSICIAN FOR PHYSICAL THERAPY ORDER.
[2020-11-19 08:13] LABS: HEMATOCRIT 35.5 % (42.0-52.0); HEMOGLOBIN 11.5 gm/dL (14.0-18.0); MCH 29.8 pg (26.0-34.0); MCHC 32.3 g/dL (28.0-37.0); MCV 92.2 fL (80.0-100.0); RBC 3.85 mil/uL (4.50-6.00); RDW 18.2 % (10.5-14.5); WBC 8.1 thou/uL (4.0-11.0)
[2020-11-19 08:25] LABS: CALCIUM 8.5 mg/dL (8.5-10.1); CREATININE 0.8 mg/dL (0.7-1.3); POTASSIUM 3.7 mmol/L (3.5-5.1)
--- NOTE | 2020-11-19 09:04 | NUR ---
Nutrition: pt admitted with PNA, sepsis, SOB. Seen due to Sepsis Dx. Pt eating well per nsg. 11/19: 25%/100%/100% intake of meals. UBW 160-165, current 169#. PMH/labs/meds noted. Note hx DM but no accuchecks being taken. May need rehab per ICU rounds. Place as low nutrition risk.
--- NOTE | 2020-11-19 12:54 | NUR ---
PT CALLED OUT TO NURSES STATION, THIS RN CHECKED ON PT. APPEARED DUSKY, DISORIENTED/HALLUCINATING. ORIENTED TO SELF. BP 119/39. THIS RN CALLED FOR SECONDARY RN CHECK. BP INCREASED TO 149/70. THIS RN PAGED DR FLETCHER, INFORMED OF SYMPTOMS, WAS INSTRUCTED TO MONITOR PT BP AT THIS TIME. IN ROOM. HR STABLE. BP SITTING 150/78. LAYING DOWN 148/74. STATES PT SMALL TREMORS IN BOTH HANDS "HAS BEEN HIS NORMAL LATELY" PT MOVED FROM CHAIR TO BED WITH 2 ASSIST.
--- NOTE | 2020-11-19 15:24 | NUR ---
SW reviewed chart and spoke with nursing. Pt was transferred to from ICU earlier today. Pt known to SW from previous hospitalizations. Pt lives at home with his . 2 steps to enter their home and no steps inside. Pt has a walker. Pt has been to [facility] in the past and has used [facility]. Pt's PCP is Dr. Monreal. PT/OT ordered today to evaluate pt for discharge needs. SW is following to assist as needed with discharge planning.
[2020-11-20 03:57] VITALS: BP 130/59
[2020-11-20 04:22] VITALS: BP 130/59
--- NOTE | 2020-11-20 04:30 | NUR ---
PT ON CPAP AT 2200. AT APPROX 0145 PT HR STARTED TO ELEVATE. HR WAS IN 120-127 BPM. GAVE PT PO PAIN MEDICATION AND 0900 BP MEDICATION. HR BACK INTO 80'S BPM. WILL CONTINUE TO MONITOR.
[2020-11-20 07:47] VITALS: BP 115/50
[2020-11-20 11:13] VITALS: BP 136/55
[2020-11-20 14:41] VITALS: BP 171/81
--- NOTE | 2020-11-20 14:53 | NUR ---
MACO reviewed chart and spoke with nursing and attending physician. Pt is on 2L of O2 and on IV abx. Cardiology consulted. SW met with pt at bedside. Introduced role of SW. Pt is alert/orientated. SW discussed discharge needs: post-acute placement v. Home with HH. Pt is agreeable with either option, but is hoping to be able to go home. Discussed with attending who is recommending SNF. MACO left voice message for pt's , Darcy Meier, to discuss SNF placement. Pt has been to [facility] SNF in the past. Awaiting call back at this time. Will need insurance auth for SNF. MACO is following to assist as needed with discharge planning.
--- NOTE | 2020-11-20 17:44 | NUR ---
ASSUMED PATIENT CARE AT 1200. A/0 X2 WITH HALLUCINATION. INCREASED 02 TO 4L. RT PUT CPAP ON FOR HIS NAP. SOB WITH EXERTION. ASSISTED PATIENT WITH DINER. NOT TOWARDS POC GOALS.
[2020-11-20 19:30] VITALS: BP 138/59
[2020-11-21] VITALS (16 sets, daily range): BP systolic 70–153; BP diastolic 36–84
[2020-11-21 05:30] LABS: HEMATOCRIT 33.5 % (42.0-52.0); HEMOGLOBIN 10.8 gm/dL (14.0-18.0); MCH 29.8 pg (26.0-34.0); MCHC 32.2 g/dL (28.0-37.0); MCV 92.4 fL (80.0-100.0); RBC 3.62 mil/uL (4.50-6.00); WBC 7.2 thou/uL (4.0-11.0)
[2020-11-21 06:36] LABS: CALCIUM 8.4 mg/dL (8.5-10.1); CREATININE 1.1 mg/dL (0.7-1.3); POTASSIUM 3.7 mmol/L (3.5-5.1)
--- NOTE | 2020-11-21 06:36 | NUR ---
VSS OVERNIGHT AND NO FEVERS. PULSE OX IS NOW ON PT HEAD. PT WAS ON BIPAP OVERNIGHT. PT IS A MOUTH BREATHER IT WAS SEEN DUE TO MULTIPLE ALARMS FROM THE CONTINUOS PULSE OX. THERE WERE NO CARDIAC ISSUES OVERNIGHT WITH V-TACH. PT REMAINED SR. NO COMPLAINTS AND PT SLEPT COMFORTABLY.
--- NOTE | 2020-11-21 09:38 | NUR ---
MACO reviewed chart and spoke with nursing. Pt has been febrile and is on 3L of O2. Pt is on IV abx. MACO received call from pt's , Darcy, to discuss discharge plans. Pt's is agreeable with SNF referral. In-network SNF options reviewed. Pt's requests referral to be sent to [facility] due to location. No weekend discharge planned. MACO faxed referral to [facility] and spoke with Debi Brown in admissions to notify of new referral. Will need insurance authorization for SNF admission. MACO is following to assist as needed with discharge planning.
[2020-11-21 13:29] LABS: BE(vivo) -1.1 mmol/L (-2 to +3); HCO3 23.8 mmol/L (22.0-26.0); PCO2 40.6 mmHg (35.0-45.0); PO2 70.9 mmHg (80.0-100.0); pH 7.386 (7.360-7.450); sO2 94.1 % (92.0-98.0)
--- NOTE | 2020-11-21 18:11 | NUR ---
CARE ASSUMED AT 0700, PT ALERT AND ORIENTGED X4, FORGETFUL AND HX OF DEMENTIA. PT WAS ON 2L UPON START OF SHIFTM, OXYGEN NEED WHEN UP AROUND 9AM, O2 SAT WAS 85% SUSTAININGM, INCREASED O2 TO 6L, SOB WITH EXERTION. DR. FLETCHER MADE AWARE GAVE ORDERS FOR CHEST XRAY AND ABG'S. PT ABG'S WERE NORMAL AND NO CHANGES WITH CHEST XRAY. O2 SATURATION GOT BETTER, MORE RESTFUL AFTER XANAX WAS GIVEN. PT VISITING, UPDATED ABOUT CARE FALL PRECAUTIONS IN PLACE. DENIES ANY OTHER NEEDS AT THE MOMENT.
[2020-11-21 22:05] LABS: BE(vivo) -1.6 mmol/L (-2 to +3); HCO3 23.2 mmol/L (22.0-26.0); PCO2 39.5 mmHg (35.0-45.0); PO2 83.8 mmHg (80.0-100.0); pH 7.387 (7.360-7.450); sO2 96.2 % (92.0-98.0)
[2020-11-21 22:10] LABS: HEMATOCRIT 35.9 % (42.0-52.0); HEMOGLOBIN 11.5 gm/dL (14.0-18.0); MCH 29.8 pg (26.0-34.0); MCHC 32.2 g/dL (28.0-37.0); MCV 92.7 fL (80.0-100.0); RBC 3.87 mil/uL (4.50-6.00); RDW 18.5 % (10.5-14.5); WBC 9.7 thou/uL (4.0-11.0)
[2020-11-21 22:16] LABS: CALCIUM 8.1 mg/dL (8.5-10.1); CREATININE 1.2 mg/dL (0.7-1.3); POTASSIUM 3.9 mmol/L (3.5-5.1)
--- NOTE | 2020-11-21 22:17 | NUR ---
ASSUMED CARE OF FROM DAY SHIFT PT VERY RESTLESS PULLING CPAP OFF SAT 88-90 % RESP THERAPY CALLED , AT BEDSIDE ADJUSTING THE CPAP, HEART RATE 131. DR FLETCHER ORDER RECIEVED FOR ONE TIME DOSE OF METOPROLOL. PT CONUTINE TO DE-SAT TO 87% WHILE ON CPAP. PT MOVED TO ICU ROOM 243 , THERESA ZAMORANO CALLED OF PT STATUS,ALSO DR GONSALVES RETURN CALL INFORM HIM OF STATUS.
[2020-11-22] VITALS (49 sets, daily range): BP systolic 73–155; BP diastolic 35–77
[2020-11-22 02:44] LABS: ABSOLUTE NEUTROPHILS 11.6 thou/uL (1.4-8.2); EOSINOPHILS 0.1 % (0.0-3.0); HEMATOCRIT 33.2 % (42.0-52.0); HEMOGLOBIN 10.4 gm/dL (14.0-18.0); LYMPHOCYTES 2.1 % (24.0-44.0); MCH 28.9 pg (26.0-34.0); MCHC 31.3 g/dL (28.0-37.0); MCV 92.4 fL (80.0-100.0); MONOCYTES 4.2 % (1.0-8.0); PLATELET COUNT 100 thou/uL (150-400); POLYS 93.6 % (36.0-66.0); RBC 3.59 mil/uL (4.50-6.00); RDW 17.9 % (10.5-14.5); WBC 12.4 thou/uL (4.0-11.0)
[2020-11-22 03:03] LABS: CALCIUM 7.9 mg/dL (8.5-10.1); CREATININE 1.1 mg/dL (0.7-1.3); MAGNESIUM 2.2 mg/dL (1.8-2.4); POTASSIUM 3.5 mmol/L (3.5-5.1)
--- NOTE | 2020-11-22 06:26 | NUR ---
Patient here from 3W about 2200. Patient very lethargic and is on Bipap. Transferred to ICU bed and full monitoring. Pressure noted to be in the 70's. Rah ordered 500 cc bolus. This was started as well as levophed to support blood pressure. Levo has been at 7 mcgs/min maintaining MAP > 60. Heart rate and rhythm stable sinus. Started out in the 90s and is now in the 40's as patient is sound asleep. Patient did wake up more through the night. Still confused but redirectable and following commands. No sedation medication given this shift. Patient incontinent of urine upon arrival to ICU. Acosta placed per order. Pt made about 200 cc urine this shift. Blood sugars checked per ICU protocol and they are WNL. Patient has remained on bipap overnight with adequate oxygenation. Pt's RR has gone from 30's to teens. No distress noted. Low grade fever noted. Am labs drawn. Upon arrival to ICU, this RN spoke to Dr. Monreal and Dr. Chaves. Update given, orders received and discussed care plan. Patient is moving through plan of care. Did not speak with family this shift. 3W RN was to call family. See documentation on interventions for assessment detials.
--- NOTE | 2020-11-22 08:32 | NUR ---
PT PLACED ON HOLD FROM P.T. PER DEPT POLICY DUE TO DECLINE IN MEDICAL STATUS WITH SUBSEQUENT TRANSFER TO ICU. REQUEST NEW P.T. ORDERS WHEN APPROPRIATE.
[2020-11-22 08:44] LABS: CREATININE 1.1 mg/dL (0.7-1.3); MAGNESIUM 2.3 mg/dL (1.8-2.4); POTASSIUM 3.9 mmol/L (3.5-5.1)
--- NOTE | 2020-11-22 12:36 | EKG ---
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 Property Manager: MARTI : 1935 Requested By: Luis Marin Order Number: [id number] MD: Sandeep Maguire Measurements Intervals [place] Rate: 51 P: 37 TN: 161 QRS: 60 QRSD: 115 T: 65 QT: 567 QTc: 523 Interpretive Statements Sinus bradycardia Nonspecific intraventricular conduction delay Compared to ECG 11/17/2020 13:56:56 No significant changes Electronically Signed On 11-22-2020 12:35:57 CDT by Sandeep Maguire [email or web address] <ELECTRONICALLY SIGNED> By: Sandeep Maguire MD, [facility] 11/22/20 1235 D: 0657 6 Sandeep Maguire MD, FAC /EPI
--- NOTE | 2020-11-22 16:23 | NUR ---
PT RESTING ON BIPAP. FIO2 TITRATED BY RT. TWO DIFFERENT BIPAP MASKS USED TO HELP PREVENT SKIN BREAKDOWN. LEVOPHED TITRATED DOWN BY RN. POTASSIUM REPLACED PER [facility] PROTOCAL. PT AFEBRILE, ADEQUATE UOP, NO BM, NPO. PTS AT BEDSIDE, THEY HAVE BOTH BEEN EXTENSIVELY UPDATED AND EDUCATED ON PT CONDITION AND POC. PT SLOWLY PROGRESSING TOWARDS POC.
[2020-11-23] VITALS (44 sets, daily range): BP systolic 91–158; BP diastolic 32–73
[2020-11-23 04:36] LABS: HEMATOCRIT 34.2 % (42.0-52.0); HEMOGLOBIN 10.8 gm/dL (14.0-18.0); MCH 29.6 pg (26.0-34.0); MCHC 31.6 g/dL (28.0-37.0); MCV 93.5 fL (80.0-100.0); RBC 3.66 mil/uL (4.50-6.00); RDW 18.3 % (10.5-14.5); WBC 6.5 thou/uL (4.0-11.0)
[2020-11-23 04:46] LABS: CALCIUM 8.1 mg/dL (8.5-10.1); CREATININE 1.2 mg/dL (0.7-1.3); POTASSIUM 4.1 mmol/L (3.5-5.1)
--- NOTE | 2020-11-23 17:05 | NUR ---
PT RESTING COMFORTABLY WITH AT BEDSIDE FOR MAJORITY OF THE DAY. FIO2 WAS NOT TITRATED BY RT TODAY. PAF ON TELE. PT AFEBRILE, ADEQUATE UOP, NO BM, NPO. PT AND HAVE BEEN EXTENSIVELY UPDATED AND EDUCATED ON PT CONDITION AND POC. PT SLOWLY PROGRESSING TOWARDS POC.
[2020-11-24] VITALS (24 sets, daily range): BP systolic 88–157; BP diastolic 42–68
[2020-11-24 03:00] LABS: HEMATOCRIT 33.8 % (42.0-52.0); HEMOGLOBIN 10.8 gm/dL (14.0-18.0); MCH 29.3 pg (26.0-34.0); MCHC 31.9 g/dL (28.0-37.0); MCV 91.9 fL (80.0-100.0); RBC 3.68 mil/uL (4.50-6.00); RDW 18.3 % (10.5-14.5); WBC 5.8 thou/uL (4.0-11.0)
[2020-11-24 03:10] LABS: CREATININE 1.1 mg/dL (0.7-1.3); POTASSIUM 3.2 mmol/L (3.5-5.1)
--- NOTE | 2020-11-24 06:49 | NUR ---
PATIENT TRANSFER TO ICU, WILL PLACE ON HOLD AND NEED NEW ORDERS WHEN APPROPRIATE FOR OT INTERVENTIONS. THANK YOU
--- NOTE | 2020-11-24 10:23 | NUR ---
Nurse talked with Dr. Monreal who expressed lovenox is on hold secondary to his bleeding and platelet count. Nurse talked with Dr. Chaves in regards to patient frequently, approximately every 5-20 minutes, pulling off bipap. The patient expressed that he feels as if he can't breath. Education provided expressing his breathing is better with the bipap. Nurse asked if he feels as if he can't catch his breath. He expressed that is how he feels. Dr. Monreal was here and expressed to give the morphine for pain and air hunger. This was done, it appeared to help in the patient breathing became more calm, unlabored, and his pain was lessoned. Per Dr. Chaves, obtain ABG, place central line, he is okay with PICC line. 1020- Nurse called patients Darcy spencer the number on file, x2, with only a voicemail option. Message not left, will attempt to call back shortly.
[2020-11-24 11:11] LABS: BE(vivo) -0.8 mmol/L (-2 to +3); HCO3 24.5 mmol/L (22.0-26.0); PCO2 42.8 mmHg (35.0-45.0); PO2 69.3 mmHg (80.0-100.0); pH 7.375 (7.360-7.450); sO2 93.5 % (92.0-98.0)
--- NOTE | 2020-11-24 12:22 | NUR ---
Nurse talked with patients son, per wifes request, over the phone. Patients son is a Medical Physician. Patients agreed to the PICC line after risks vs benefits were reviewed with her and her son and then she talked with her son. Patient is also agreeable to PICC line, however secondary to him receiving morphine and intermittent confusion, nurse did not feel comfortable with him signing consent. Dr. Chaves talked with patients son and patients about update of status, care plan and oxygen demands. Plan is for patient to be a DNR and continue current treatments without intubation at this time. Nurse to notify IV Team RN for line placement.
--- NOTE | 2020-11-24 13:31 | NUR ---
Chart review, juanis newby at bedside. discussed during los with hospitalist and during am rounds. Requiring use of bipap. will cont. following as needed for dc needs. Still will need at received [facility], when he is stable for dc. will cont. following as needed for dc needs.
--- NOTE | 2020-11-24 17:46 | NUR ---
VAT CONSULTED FOR LINE PLACEMENT. PT'S LABS,MEDS,HX ORDER AND CONSENT VERIFIED. GLENNA BASILIC WAS WIDELY PATENT, MEASURED 40% OF VESSEL. 5FR TL POWER PICC TRIMMED TO 40CM INSERTED TO 0CM EXTERNAL. 3CG CONFIRMED PICC PLACEMENT WITH PEAKED P-WAVES. PT TOLERATED WELL. PICC RELEASED FOR IMMEDIATE USE PER PROTOCOL TO MAGALYS HAMMOND
--- NOTE | 2020-11-24 18:55 | NUR ---
Patient not progressing towards plan of care as evidenced by continued need for the bipap with intermittent periods of shortness of breath with decreased o2 sat levels. When he feels like he can breath he is more calm and cooperative with oxygenation levels in the upper 90's-100%. Dr. Chaves talked with family today and patient is now a no code blue. Will continue to monitor patient status.
[2020-11-25] VITALS (11 sets, daily range): BP systolic 113–167; BP diastolic 54–77
--- NOTE | 2020-11-25 03:23 | NUR ---
ASSUMED PT CARE AROUND 2244. PT HAS PERIODS OF RESTLESSNESS AND ANXIETY. DURING THESE EPISODES, HE TRIES TO TAKE OFF BIPAP. O2 SATS QUICKLY DROP TO 60S-70% WHITHOUT BIPAP. PRN MORPHINE GIVEN FOR AIR HUNGER. PT'S ANXIETY IMPROVES WITH MORPHINE. NAPIER TO DD WITH ADEQUATE URINE OUTPUT. TPN VIA CENTRAL LINE. IV ABX GIVEN PER EMAR ORDERS. REPOSITIONED TO PREVENT SKIN BREAKDOWN. HOWEVER, PT DOESN'T ALWAYS TOLERATE TURNS DUE TO HIS BREATHING. FALL PRECAUTIONS IN PLACE. NOT PROGRESSING WELL TOWARD POC GOALS.
[2020-11-25 05:48] LABS: CALCIUM 7.8 mg/dL (8.5-10.1); CREATININE 1.3 mg/dL (0.7-1.3); POTASSIUM 3.1 mmol/L (3.5-5.1)
[2020-11-25 05:56] LABS: HEMATOCRIT 32.5 % (42.0-52.0); HEMOGLOBIN 10.4 gm/dL (14.0-18.0); MCH 29.4 pg (26.0-34.0); MCHC 31.9 g/dL (28.0-37.0); MCV 92.2 fL (80.0-100.0); RBC 3.53 mil/uL (4.50-6.00); RDW 18.5 % (10.5-14.5); WBC 7.5 thou/uL (4.0-11.0)
[2020-11-25 05:57] LABS: ALBUMIN 1.6 g/dL (3.4-5.0); DIRECT BILIRUBIN 0.2 mg/dL (<0.1-0.2); MAGNESIUM 2.5 mg/dL (1.8-2.4); PHOSPHORUS 2.4 mg/dL (2.5-4.9); TOTAL BILIRUBIN 0.4 mg/dL (0.2-1.0); TOTAL PROTEIN 5.6 g/dL (6.4-8.2)
--- NOTE | 2020-11-25 07:23 | NUR ---
BLOOD GLUCOSE HAS BEEN INCREASING. NOTIFIED DR FLETCHER. WILL START PT ON MDSSI PER DR ORDER. REPORT GIVEN TO DAY SHIFT RN.
[2020-11-26] VITALS (19 sets, daily range): BP systolic 102–166; BP diastolic 51–88
--- NOTE | 2020-11-26 07:42 | NUR ---
PER CHART REVIEW, PLANS FOR PT. TO TRANSITION TO HOSPICE/COMFORT CARE TODAY. WILL DISCONTINUE OCCUPATIONAL THERAPY SERVICES AT THIS TIME.
--- NOTE | 2020-11-26 08:48 | NUR ---
PT TO BE D/C FROM P.T. SERVICES PER PT FAMILY DECISION TO TRANSITION TO HOSPICE/COMFORT CARE.
--- NOTE | 2020-11-26 12:37 | NUR ---
referral sent to hospice house as requested by and family request, johny liaison will be out around 1300 today for eval. cm visited with and son at bedside, education on hospice house.
--- NOTE | 2020-11-26 18:35 | NUR ---
PATIENT MADE COMFORT CARE TODAY. GOING TO [facility]. REPORT CALLED TO [facility], AWAITING NON-EMERGENT TRANSPORTATION BY AMBULANCE AFTER 1900. [id number] DNR IS SIGNED AND IN [facility] ENVELOPE. PATIENT RECIEVING MORPHINE FOR AIR HUNGER Q1H.
== END 2020-11-26 19:40 | disposition hospice, inpatient (51) | DRG 871 ==
LOC: ER 13:23 → 3W 16:47 → ICU 16:47 → EROBS 16:47 → ICU 18:27 → 3W 11-19 10:10 → ICU 11-21 21:49
PROVIDERS: Emergency Medicine; Internal Medicine Pulmonary Disease; Nurse Practitioner Adult Health; ADMIT Family Medicine; ATTEND Family Medicine
DX: A41.9 Sepsis, unspecified organism (principal); J18.9 Pneumonia, unspecified organism; I50.33 Acute on chronic diastolic (congestive) heart failure; J96.21 Acute and chronic respiratory failure with hypoxia; D84.9 Immunodeficiency, unspecified; J44.0 Chronic obstructive pulmonary disease with (acute) lower respiratory infection; Z20.822 Contact with and (suspected) exposure to COVID-19; F03.90 Unspecified dementia, unspecified severity, without behavioral disturbance, psychotic disturbance, mood disturbance, and anxiety; K21.9 Gastro-esophageal reflux disease without esophagitis; F32.9 Major depressive disorder, single episode, unspecified; F41.9 Anxiety disorder, unspecified; E78.5 Hyperlipidemia, unspecified; M06.9 Rheumatoid arthritis, unspecified; I11.0 Hypertensive heart disease with heart failure; R33.9 Retention of urine, unspecified; I48.0 Paroxysmal atrial fibrillation; G47.33 Obstructive sleep apnea (adult) (pediatric); J45.40 Moderate persistent asthma, uncomplicated; R53.81 Other malaise; I25.10 Atherosclerotic heart disease of native coronary artery without angina pectoris; E78.00 Pure hypercholesterolemia, unspecified; I87.2 Venous insufficiency (chronic) (peripheral); Z66 Do not resuscitate; E11.40 Type 2 diabetes mellitus with diabetic neuropathy, unspecified; Z51.5 Encounter for palliative care; Z88.0 Allergy status to penicillin; Z88.8 Allergy status to other drugs, medicaments and biological substances; Z91.041 Radiographic dye allergy status; Z98.42 Cataract extraction status, left eye; Z90.49 Acquired absence of other specified parts of digestive tract; I25.2 Old myocardial infarction; Z98.41 Cataract extraction status, right eye; Z87.891 Personal history of nicotine dependence; Z79.01 Long term (current) use of anticoagulants; Z86.718 Personal history of other venous thrombosis and embolism; Z79.899 Other long term (current) drug therapy
CPT/HCPCS: 10078; 10879; 27000